=== PATIENT | female | born 1960 | race African-American/Black ===

== ENCOUNTER 2021-11-14 21:59 | Inpatient (IN) | payer BC ==
[~2021-11-14] VITALS: Ht 162.6 cm; Wt 83.9 kg
[2021-11-14 22:19] VITALS: BP_SYST 133
--- NOTE | 2021-11-14 22:25 | NUR ---
61 YR OLD FEMALE BROUGHT IN BY BLS AMBULANCE FOR NAUSEA AND VOMITING. PT HAS NUMEROUS HEALTH CONDITIONS AND IS ON A TRACH COLLAR. MD AT THE BEDSIDE
[2021-11-14] MEDS ORDERED: ONDANSETRON HCL 4 MG/2 ML VIAL IVP ONE (22:30)
--- NOTE | 2021-11-14 22:41 | NUR ---
XTRA BEING CONDUCTED AT BED SIDE
--- NOTE | 2021-11-14 22:42 | NUR ---
VT BROUGHT IN BY [facility], PT NON VERBAL, TRACHED, PT BROUGHT IN BCS OF NAUSEA, PT VS ARE WITHIN NORMAL LIMITS. PT IN BED WITH BED LOWERED AND LOCKED AND RAILS UP WILL CONTINUE TO MONITOR.
[2021-11-14] MEDS ORDERED: cefTRIAXone 1 GM IVPB PREMIX 50 ML IV ONE (22:45)
[2021-11-14 23:23] LABS: ANION GAP 4 (5-15); CALCIUM 8.3 mg/dL (8.4-11.0); CREATININE 1.04 mg/dL (0.55-1.30); GLUCOSE 101 mg/dL (70-99); POTASSIUM 4.7 mmol/L (3.5-5.1); UREA NITROGEN, BLOOD 14 mg/dL (8-21)
[2021-11-14 23:26] LABS: BASOPHILS % (AUTO) 0.5 % (0.0-2.0); EOSINOPHILS # (AUTO) 0.5 K/uL (0.0-0.4); EOSINOPHILS % (AUTO) 6.2 % (0.0-4.0); HEMATOCRIT 23.7 % (36-48); HEMOGLOBIN 8.7 g/dL (12.0-16.0); LYMPHOCYTES # (AUTO) 2.2 K/uL (1.0-5.5); LYMPHOCYTES % (AUTO) 27.1 % (20.5-51.5); MEAN CORPUSCULAR HEMOGLOBIN 32 pg (27-31); MEAN CORPUSCULAR HGB CONC 37 % (32-36); MEAN CORPUSCULAR VOLUME 88 fL (79.0-98.0); MONOCYTES # (AUTO) 0.7 K/uL (0.0-1.0); NEUTROPHILS # (AUTO) 4.7 K/uL (1.8-7.7); NEUTROPHILS % (AUTO) 57.2 % (40.0-70.0); WHITE BLOOD COUNT (AUTO) 8.2 K/uL (4.8-10.8)
[2021-11-14 23:32] LABS: ALANINE AMINOTRANSFERASE 72 U/L (12-78); ALBUMIN 2.9 g/dL (3.4-4.8); ASPARTATE AMINOTRANSFERASE 30 U/L (10-37); LIPASE 30 U/L (73-393); TOTAL BILIRUBIN 0.3 mg/dL (0.0-1.0)
[2021-11-14 23:33] LABS: PLATELET COUNT (AUTO) 40 K/uL (130-430)
[2021-11-14 23:54] LABS: CHLORIDE 76 mmol/L (98-107); GFR AFRICAN AMERICAN 70 mL/min (>90); SODIUM SERUM 108 mmol/L (136-145)
[2021-11-15] MEDS ORDERED: NACL 0.9% 1,000 ML IV ONE (00:15)
[2021-11-15] MEDS ORDERED: ASPIRIN 300 MG/SUPP.RECT SUPP RC ONE ×2 (00:15→00:52)
[2021-11-15] MEDS ORDERED: ONDANSETRON HCL 4 MG/2 ML VIAL IVP PRN (00:30)
[2021-11-15] MEDS ORDERED: IPRATROPIUM/ALBUTEROL SULFATE 3 ML AMPUL.NEB (DUONEB) INH PRN (00:30)
[2021-11-15] MEDS ORDERED: ACETAMINOPHEN 325 MG TABLET GT PRN (00:30)
--- NOTE | 2021-11-15 01:06 | NUR ---
Admit bed requested Patient will be admitted to care of . Admitted to TELE Inpatient (Yes or No) Y Observation (Yes or No) Y Orientation concerns or request close to nursing station (Yes or No) Y Covid Status NEG On vent or bipap N From Home (Yes or if No enter name of facility) [facility] Med Rec Completed (Yes of No) PENDING
[2021-11-15 02:45] VITALS: BP_SYST 148
[2021-11-15] MEDS: IPRATROPIUM/ALBUTEROL SULFATE 3 ML AMPUL.NEB (DUONEB) INH SCH ×4 (03:00→15:29)
--- NOTE | 2021-11-15 05:00 | NUR ---
COVID SWAB AND MRSA SWAB OBTAINED AND SAMPLE SENT TO LAB
[2021-11-15] MEDS ORDERED: PIPERACILLIN/TAZO 3.375 GM in NS 50 ML IV SCH (06:00)
[2021-11-15 07:01] LABS: BASOPHILS % (AUTO) 0.2 % (0.0-2.0); EOSINOPHILS # (AUTO) 0.4 K/uL (0.0-0.4); EOSINOPHILS % (AUTO) 6.2 % (0.0-4.0); HEMATOCRIT 24.3 % (36-48); HEMOGLOBIN 8.8 g/dL (12.0-16.0); LYMPHOCYTES # (AUTO) 1.9 K/uL (1.0-5.5); LYMPHOCYTES % (AUTO) 26.8 % (20.5-51.5); MEAN CORPUSCULAR HEMOGLOBIN 32 pg (27-31); MEAN CORPUSCULAR HGB CONC 36 % (32-36); MEAN CORPUSCULAR VOLUME 89 fL (79.0-98.0); MONOCYTES # (AUTO) 0.6 K/uL (0.0-1.0); MONOCYTES % (AUTO) 7.9 % (1.7-9.3); NEUTROPHILS # (AUTO) 4.1 K/uL (1.8-7.7); NEUTROPHILS % (AUTO) 58.9 % (40.0-70.0); RED BLOOD CELL COUNT(AUTO) 2.74 MIL/uL (4.2-6.2); RED CELL DISTRIBUTION WIDTH 14.4 % (9.0-15.0)
[2021-11-15 07:29] LABS: CALCIUM 8.3 mg/dL (8.4-11.0); CREATININE 1.08 mg/dL (0.55-1.30); POTASSIUM 4.5 mmol/L (3.5-5.1); TOTAL BILIRUBIN 0.3 mg/dL (0.0-1.0)
[2021-11-15] MEDS ORDERED: PIPERACILLIN/TAZOBACTAM 3.375 GM/VIAL (ZOSYN) IV ONE (07:36)
[2021-11-15] MEDS: NACL 0.9% 1,000 ML IV SCH ×2 (07:37→16:30)
--- NOTE | 2021-11-15 08:20 | NUR ---
Upon resumption of shift Pt in beed nonverbal GCS 11. IV access infiltrated. New 20G US guided initiated. Pt tolerated procedure appropriately. Pt cleaned and changed. Will continue to monitor pt.
[2021-11-15] MEDS ORDERED: VITD400 PO (08:36)
[2021-11-15] MEDS ORDERED: NOR10 NG (08:36)
[2021-11-15] MEDS ORDERED: TYLL650 PO (08:36)
[2021-11-15] MEDS ORDERED: LIP40 NG (08:36)
[2021-11-15] MEDS ORDERED: ASA81 NG (08:36)
[2021-11-15] MEDS ORDERED: ALBU2.5V7 INH (08:36)
[2021-11-15] MEDS ORDERED: CLON0.1T GT (08:36)
[2021-11-15] MEDS ORDERED: CYAN100010 NG (08:52)
[2021-11-15] MEDS ORDERED: LEVE1000 NG (08:52)
[2021-11-15] MEDS ORDERED: LISI40TA13 NG (08:52)
[2021-11-15] MEDS ORDERED: QUET200T NG (08:52)
[2021-11-15] MEDS ORDERED: VIS25 NG (08:52)
[2021-11-15] MEDS ORDERED: HYDR25TA4 NG (08:52)
[2021-11-15] MEDS ORDERED: LABE200T6 NG (08:52)
[2021-11-15] MEDS ORDERED: DOXY100T2 NG (08:52)
[2021-11-15] MEDS ORDERED: DEPS125 NG (08:52)
[2021-11-15] MEDS ORDERED: FAMO20TA8 NG (08:52)
[2021-11-15] MEDS ORDERED: LOVI40 SQ (08:52)
[2021-11-15] MEDS ORDERED: LORA-259 NG (08:52)
[2021-11-15] MEDS ORDERED: BISA10SU61 RC (08:52)
[2021-11-15] MEDS ORDERED: ONDA-8 NG (08:52)
[2021-11-15 08:59] LABS: PLATELET COUNT (AUTO) 152 K/uL (130-430)
--- NOTE | 2021-11-15 09:05 | NUR ---
NOTES: pt. brought in from ER via gurney, report given by nurse Rizwan, informed nurse Dana (admitting nurse).
--- NOTE | 2021-11-15 09:18 | NUR ---
Pt transported to floor by ED RN on monitor in no acute distress with 2L of O2 via trach collar. No deviation in pt mentation from previous documentation. [address] IV infusing NS @ 100mls/hr. Pt in no acute distress at time of handoff. Bedside report given to Kandis SHINE.
--- NOTE | 2021-11-15 09:20 | NUR ---
ADMISSION NOTE Received patient from ER via gurney. Patient admitted with diagnosis of vomiting,hyponatremia . Patient is awake, alert, oriented name . Patient oriented to hospital room, call light, toileting, pain management and safety-teach back done. Patient informed that i will be a nurse and that their room number is 130b. Personal belongings checked and Belongings List documented. Call light within reach.
[2021-11-15] MEDS ORDERED: LORazepam 1 MG TABLET NG SCH (10:13)
[2021-11-15] MEDS ORDERED: ONDANSETRON 4 MG ODT TAB NG PRN (10:15)
[2021-11-15] MEDS ORDERED: ALBUTEROL SULFATE 0.083% 2.5 MG/3 ML VIAL.NEB INH PRN (10:15)
[2021-11-15] MEDS ORDERED: cloNIDine HCL 0.1 MG TABLET GT PRN (10:15)
[2021-11-15] MEDS ORDERED: ACETAMINOPHEN 650 MG/20.3 ML UDC PO SCH (10:15)
[2021-11-15] MEDS ORDERED: BISACODYL 10 MG/SUPPOSITORY RC PRN (10:15)
[2021-11-15] MEDS ORDERED: LORazepam 1 MG TABLET GT PRN ×2 (10:45→13:22)
--- NOTE | 2021-11-15 11:00 | NUR ---
RETURN CALL TO PATIENT FATHER ( LONA) UPDATED PATIENT CURRENT CONDITION AND POC. VERBALIZED UNDERSTANDING, STATED WILL BE HERE LATER TODAY.
[2021-11-15] MEDS ORDERED: FAMOTIDINE 20 MG TABLET NG ONE (12:00)
[2021-11-15] MEDS ORDERED: ENOXAPARIN SODIUM 40 MG/0.4 ML SYRINGE SQ ONE (12:00)
[2021-11-15] MEDS ORDERED: lisinopriL 20 MG TABLET NG ONE (12:00)
[2021-11-15] MEDS ORDERED: ASPIRIN 81 MG TAB.CHEW NG ONE (12:00)
[2021-11-15] MEDS ORDERED: HYDROCHLOROTHIAZIDE 25 MG TABLET (HCTZ) NG ONE (12:00)
[2021-11-15] MEDS ORDERED: DOXYCYCLINE HYCLATE 100 MG CAPSULE NG ONE (12:15)
[2021-11-15 12:45] VITALS: BP_SYST 122
[2021-11-15] MEDS ORDERED: levETIRAcetam 500 MG TABLET NG ONE (13:15)
--- NOTE | 2021-11-15 14:23 | NUR ---
CONSULTATION PAGED/CALLED Reason for Consultation: [] elevated troponin Person Who was Notified: [] Christina Consulting Physician: [] Dr. Burrell Associate Professor Of Surgery Specialty: []Cardio Ordering Physician: [] Dr. Quan
[2021-11-15] MEDS: PIPERACILLIN/TAZO 3.375 GM in NS 50 ML IV SCH ×2 (14:40→22:36)
[2021-11-15] MEDS: QUEtiapine FUMARATE 100 MG TABLET GT SCH ×2 (14:46→22:39)
[2021-11-15] MEDS: LABETALOL HCL 100 MG TABLET GT SCH ×2 (14:46→22:43)
[2021-11-15 14:48] VITALS: BP_SYST 109
[2021-11-15 15:46] LABS: BILIRUBIN,URINE NEGATIVE (NEGATIVE); CLARITY/URINE CLEAR (CLEAR); GLUCOSE,URINE NEGATIVE (NEGATIVE); KETONES,URINE NEGATIVE (NEGATIVE); NITRITE, URINE NEGATIVE (NEGATIVE); PH,URINE 7.5 (5.0-8.0); PROTEIN URINE NEGATIVE (NEGATIVE); UROBILINOGEN,URINE 0.2 (0.2-1.0)
[2021-11-15 16:00] LABS: BLOOD, URINE TRACE (NEGATIVE); COLOR,URINE STRAW (YELLOW); LEUKOCYTE ESTERASE ,URINE 1+ (NEGATIVE)
[2021-11-15 16:02] LABS: BACTERIA,URINE FEW /HPF (None Seen); MUCUS,URINE None Seen /LPF (None Seen); RBC,URINE NONE SEEN /HPF (0-3)
--- NOTE | 2021-11-15 16:43 | NUR ---
consult called dr. de anda ( director [employer]) s/w jayla answering service.
--- NOTE | 2021-11-15 16:49 | NUR ---
ID consult: consult called DR. meza for consult. dx pna and hyponatremia. s/w karina answering service.
--- NOTE | 2021-11-15 18:02 | NUR ---
DR. HAAS CALLED BACK AWARE ABOUT THE TROP IS TRENDING DOWN, NEW ORDER RECEIVED START G-TUBE FEEDING TO GLUCERNA 1.2@ 30ML/HR NO WATER FLUSH SODIUM IS 110.
--- NOTE | 2021-11-15 19:31 | NUR ---
endorsed care to jeff SHINE.
[2021-11-15 20:00] VITALS: BP_SYST 95
[2021-11-15] MEDS ORDERED: LevALBUTEROL HCL 1.25 MG/0.5 ML *CONC.* VIAL.NEB (XOPENEX CONC.) INH PRN (20:00)
[2021-11-15] MEDS ORDERED: INSULIN REGULAR, HUMAN 100 UNITS/ML, 10 ML VIAL (humuLIN R) SUBCUT PRN (20:00)
[2021-11-15] MEDS ORDERED: DOXYCYCLINE HYCLATE 100 MG CAPSULE GT SCH (21:00)
[2021-11-15] MEDS ORDERED: DOXYCYCLINE HYCLATE 100 MG CAPSULE NG SCH (21:00)
[2021-11-15] MEDS: LevALBUTEROL HCL 1.25 MG/0.5 ML *CONC.* VIAL.NEB (XOPENEX CONC.) INH SCH (21:10)
[2021-11-15] MEDS ORDERED: KCL 20 mEq in D5NS 1000 mL 1,000 ML IV ONE (22:37)
[2021-11-15] MEDS: levETIRAcetam 500 MG TABLET GT SCH (22:39)
[2021-11-15] MEDS: ATORVASTATIN 20 MG TABLET GT SCH (22:39)
[2021-11-15] MEDS: DIVALPROEX SODIUM 125 MG CAP.(DEPAKOTE SPRINKLE) GT SCH (22:40)
[2021-11-15] MEDS: KCL 20 mEq in D5NS 1000 mL 1,000 ML IV SCH (22:44)
[2021-11-16] MEDS: LevALBUTEROL HCL 1.25 MG/0.5 ML *CONC.* VIAL.NEB (XOPENEX CONC.) INH SCH ×4 (01:39→21:00)
[2021-11-16 01:45] VITALS: BP_SYST 100
[2021-11-16] MEDS: QUEtiapine FUMARATE 100 MG TABLET GT SCH ×3 (06:21→22:00)
[2021-11-16] MEDS: PIPERACILLIN/TAZO 3.375 GM in NS 50 ML IV SCH ×2 (06:22→14:22)
[2021-11-16 06:40] LABS: ALBUMIN 2.5 g/dL (3.4-4.8); CALCIUM 8.1 mg/dL (8.4-11.0); POTASSIUM 4.3 mmol/L (3.5-5.1); TOTAL BILIRUBIN 0.6 mg/dL (0.0-1.0)
--- NOTE | 2021-11-16 07:30 | NUR ---
Opening Notes Patient is awake, alert and oriented x0. Withdrawn. Arousable to touch and light stimuli. Pt remains nonverbal at this time. Mild SOB at rest, JEREZ. Pt remains on trach to TBAR @ 2 liters, FiO2 28%, tolerating well. Scheduled breathing treatments. IV site on left AC 22 gauge intact, KCl 20 mEq +D5NS @ 100 ml/, infusing well. FC draining by gravity, yellow and clear urine. PEGTUBE in place, C/D/I, TF: Glucerna 1.2 @ 30 ml/hr, infusing well. No residual noted. NO FWF at this time. 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 Pending CXRAY. All needs met. Safety and fall precautions in place. Bed in lowest position, alarm on, locked. Will continue to monitor.
--- NOTE | 2021-11-16 07:30 | NUR ---
Closing Patient resting in bed, no sign of distress noted. Fall catheter draining yellow urine. IV fluids infusing as ordered. Tube feeding running to GT, no residual. Per joni Bruce to change cefepime to q12hr. Care endorsed to oncoming RN.
--- NOTE | 2021-11-16 07:40 | NUR ---
CRITICAL LAB: Laboratory called with critical lab value NA 117. Medical record number and patient name verified. Read back of values done. DR LR notified of value. NO NEW orders given at this time.
[2021-11-16 08:00] VITALS: BP_SYST 144
[2021-11-16] MEDS: FAMOTIDINE 20 MG TABLET GT SCH (08:14)
[2021-11-16] MEDS: KCL 20 mEq in D5NS 1000 mL 1,000 ML IV SCH ×2 (08:14→16:53)
[2021-11-16] MEDS: levETIRAcetam 500 MG TABLET GT SCH (08:14)
[2021-11-16] MEDS: ASPIRIN 81 MG TAB.CHEW GT SCH (08:14)
[2021-11-16] MEDS: DIVALPROEX SODIUM 125 MG CAP.(DEPAKOTE SPRINKLE) GT SCH ×2 (08:14→21:00)
[2021-11-16] MEDS: lisinopriL 20 MG TABLET GT SCH (08:15)
[2021-11-16] MEDS: CHOLECALCIFEROL (VITAMIN D-3) 400 UNIT TABLET GT SCH (08:15)
[2021-11-16] MEDS: CYANOCOBALAMIN 1000 mCg TABLET GT SCH (08:16)
[2021-11-16] MEDS: LABETALOL HCL 100 MG TABLET GT SCH ×3 (08:16→21:00)
[2021-11-16] MEDS: ENOXAPARIN SODIUM 40 MG/0.4 ML SYRINGE SQ SCH (08:17)
[2021-11-16 08:39] LABS: BASOPHILS % (AUTO) 0.6 % (0.0-2.0); EOSINOPHILS # (AUTO) 0.4 K/uL (0.0-0.4); EOSINOPHILS % (AUTO) 7.1 % (0.0-4.0); HEMATOCRIT 22.3 % (36-48); HEMOGLOBIN 7.9 g/dL (12.0-16.0); LYMPHOCYTES # (AUTO) 1.3 K/uL (1.0-5.5); LYMPHOCYTES % (AUTO) 24.8 % (20.5-51.5); MEAN CORPUSCULAR HEMOGLOBIN 32 pg (27-31); MEAN CORPUSCULAR HGB CONC 36 % (32-36); MEAN CORPUSCULAR VOLUME 90 fL (79.0-98.0); MONOCYTES # (AUTO) 0.5 K/uL (0.0-1.0); MONOCYTES % (AUTO) 8.9 % (1.7-9.3); NEUTROPHILS # (AUTO) 3.2 K/uL (1.8-7.7); NEUTROPHILS % (AUTO) 58.6 % (40.0-70.0); RED BLOOD CELL COUNT(AUTO) 2.49 MIL/uL (4.2-6.2); RED CELL DISTRIBUTION WIDTH 13.7 % (9.0-15.0); WHITE BLOOD COUNT (AUTO) 5.4 K/uL (4.8-10.8)
[2021-11-16] MEDS ORDERED: HYDROCHLOROTHIAZIDE 25 MG TABLET (HCTZ) GT SCH (09:00)
[2021-11-16 09:31] LABS: PLATELET COUNT (AUTO) 142 K/uL (130-430)
--- NOTE | 2021-11-16 12:00 | NUR ---
Notes Patient is laying in bed. Family by bedside. Patient is verbal, clear speech. Per family, "She can be stubborn sometimes and not speak. She is selective of who she speaks to. Mild SOB at rest. Trach to vent, no suction needed. No signs of pain, Will continue to monitor.
[2021-11-16 12:54] VITALS: BP_SYST 135
[2021-11-16] MEDS ORDERED: CEFEPIME 1 GM in D5W 50 ML IV SCH (13:45)
--- NOTE | 2021-11-16 16:00 | NUR ---
Notes Patient is sleeping at this time. NO acute distress. Pt remains on trach to TBAR, 2 liters, FiO2 285. ABG normal. No signs of pain. Will continue to monitor.
[2021-11-16 16:53] VITALS: BP_SYST 138
--- NOTE | 2021-11-16 18:55 | NUR ---
Closing Notes/Increased TF rate: 40 ml/hr Patient is laying in bed. Alert and oriented x0, withdrawn. Mild SOB at rest. Pt remains on trach to TBAR, 2 liters FiO2 285, tolerating well. Noted with thick secretions, suctioned as needed. IV site on left AC 22 gauge intact, KCl 20 mEq + D5NS @ 100 ml/hr, infusing well. FC draining by gravity, good output, 2000 ml on shift. PEGTUBE in place. TF: Glucerna 1.2 @ 40 ml/hr, infusing well. Changed rate per Dr. Morales request. Seizure precautions in place. All needs met at [facility]. Safety and fall precautions in place. Bed in lowest position, alarm on, locked. Will continue to monitor.
--- NOTE | 2021-11-16 20:00 | NUR ---
OPEN NOTE Patient is laying in bed with eyes closed. Not responding to any commands. Pt is at this time AOX0. Pt remains on trach to TBAR, 3 liters FiO2 28, tolerating well. Noted with thick secretions, suctioned as needed. Tube feedings is at a rate: 40 ml/hr IV site on left AC 22 gauge intact, KCl 20 mEq + D5NS @ 100 ml/hr, infusing well. FC draining by gravity wit jennifer color urine. PEG TUBE in place. Seizure precautions in place. All safety and fall precautions in place. Bed in lowest position, alarm on, locked. Will continue to monitor.
[2021-11-16] MEDS: CEFEPIME 1 GM in D5W 50 ML IV SCH (21:00)
[2021-11-16] MEDS: ATORVASTATIN 20 MG TABLET GT SCH (21:00)
--- NOTE | 2021-11-17 | NUR ---
Pt remains in bed with eyes closed and non verbal. Pt is awake and shaking her leg, appears comfortable and all safety precautions remain in place.
[2021-11-17] MEDS: levETIRAcetam 500 MG TABLET GT SCH ×3 (00:39→22:02)
[2021-11-17 00:44] VITALS: BP_SYST 140
[2021-11-17] MEDS: LevALBUTEROL HCL 1.25 MG/0.5 ML *CONC.* VIAL.NEB (XOPENEX CONC.) INH SCH ×3 (03:10→13:34)
[2021-11-17] MEDS: KCL 20 mEq in D5NS 1000 mL 1,000 ML IV SCH ×3 (03:15→22:06)
--- NOTE | 2021-11-17 04:00 | NUR ---
TUBE FEEDING Pt's TF was changed pt reamins awake but with eyes closed and remains n9n verbal to any commands and will pull hand away with any touching. Safety precautions remain in place
[2021-11-17] MEDS: QUEtiapine FUMARATE 100 MG TABLET GT SCH ×3 (05:35→22:02)
[2021-11-17 07:04] LABS: BASOPHILS % (AUTO) 0.4 % (0.0-2.0); EOSINOPHILS # (AUTO) 0.4 K/uL (0.0-0.4); LYMPHOCYTES # (AUTO) 1.8 K/uL (1.0-5.5); LYMPHOCYTES % (AUTO) 27.6 % (20.5-51.5); MEAN CORPUSCULAR HEMOGLOBIN 32 pg (27-31); MEAN CORPUSCULAR HGB CONC 35 % (32-36); MEAN CORPUSCULAR VOLUME 90 fL (79.0-98.0); MONOCYTES # (AUTO) 0.6 K/uL (0.0-1.0); MONOCYTES % (AUTO) 9.6 % (1.7-9.3); NEUTROPHILS # (AUTO) 3.7 K/uL (1.8-7.7); NEUTROPHILS % (AUTO) 56.4 % (40.0-70.0); RED CELL DISTRIBUTION WIDTH 14.3 % (9.0-15.0); WHITE BLOOD COUNT (AUTO) 6.6 K/uL (4.8-10.8)
--- NOTE | 2021-11-17 07:15 | NUR ---
opening note received sbar from night rn, patient in bed, respirations evens, non labored, bed in low and locked position call light within reach, bed alarm on. iv and feeding tube running as directed.
[2021-11-17 08:00] VITALS: BP_SYST 140
[2021-11-17 08:55] LABS: PLATELET COUNT (AUTO) 183 K/uL (130-430)
[2021-11-17 08:57] LABS: HEMATOCRIT 21.6 % (36-48); HEMOGLOBIN 7.7 g/dL (12.0-16.0)
--- NOTE | 2021-11-17 08:57 | NUR ---
critical lab received critical lab paged dr Del Valle
[2021-11-17] MEDS: FAMOTIDINE 20 MG TABLET GT SCH (09:54)
[2021-11-17] MEDS: CHOLECALCIFEROL (VITAMIN D-3) 400 UNIT TABLET GT SCH (09:54)
[2021-11-17] MEDS: CYANOCOBALAMIN 1000 mCg TABLET GT SCH (09:55)
[2021-11-17] MEDS: DIVALPROEX SODIUM 125 MG CAP.(DEPAKOTE SPRINKLE) GT SCH ×2 (09:56→22:02)
[2021-11-17] MEDS: ASPIRIN 81 MG TAB.CHEW GT SCH (09:56)
[2021-11-17] MEDS: lisinopriL 20 MG TABLET GT SCH (09:57)
[2021-11-17] MEDS: LABETALOL HCL 100 MG TABLET GT SCH ×3 (09:57→22:05)
[2021-11-17] MEDS: ENOXAPARIN SODIUM 40 MG/0.4 ML SYRINGE SQ SCH (09:58)
--- NOTE | 2021-11-17 10:00 | NUR ---
critical Dr steinberg on the floor informed dr of Critical H/H and increased tropinon. no new orders
[2021-11-17] MEDS: CEFEPIME 1 GM in D5W 50 ML IV SCH ×2 (10:07→22:06)
[2021-11-17 10:12] LABS: POTASSIUM 4.2 mmol/L (3.5-5.1)
[2021-11-17 10:13] LABS: CALCIUM 8.2 mg/dL (8.4-11.0); CREATININE 1.06 mg/dL (0.55-1.30); TOTAL BILIRUBIN 0.2 mg/dL (0.0-1.0)
[2021-11-17 10:14] LABS: ALBUMIN 2.5 g/dL (3.4-4.8)
[2021-11-17 10:18] LABS: THYROID STIMULATING HORMONE 0.92 uIu/mL (0.34-4.82)
[2021-11-17 11:59] VITALS: BP_SYST 149
[2021-11-17 16:54] VITALS: BP_SYST 132
--- NOTE | 2021-11-17 17:43 | NUR ---
feeding tube stopped feeding, 0 residual, flushed freely with 100ml of water. changed feeding bottle and tubing. patient tolerated well, no signs of distress noted
--- NOTE | 2021-11-17 19:20 | NUR ---
Closing note provided SBAR to night RN. Patient in bed, respirations even, non labored, 3L to T bar, IVF and feedings running as directed. Bed in low and locked position, call light within reach, bed alarm on. Endorsed care to night RN
--- NOTE | 2021-11-17 19:45 | NUR ---
Initial note At initial assessment, patient is resting in bed, stable, no signs of respiratory distress. Patient shows no pain per flacc scale used. Plan of care for the evening is communicated with the patient. Patient is unable to demonstrate correct usage of call light at this time due to cognitive impairment; frequent rounding will be completed throughout the night to meet all patient needs. Bed is locked, alarmed, and at the lowest level. Fall safety education provided. Fall, safety, aspiration, seizure, and respiratory precautions will be taken throughout the shift.
[2021-11-17 20:00] VITALS: BP_SYST 133
[2021-11-17] MEDS: ATORVASTATIN 20 MG TABLET GT SCH (22:02)
--- NOTE | 2021-11-17 22:15 | NUR ---
Hygiene care note Hygiene care is provided at this time, fresh linens provided, and patient is repositioned for comfort and turned to other side for pressure distribution. Patient tolerated well. Bed is locked, alarmed, and at the lowest level.
[2021-11-18] MEDS: LevALBUTEROL HCL 1.25 MG/0.5 ML *CONC.* VIAL.NEB (XOPENEX CONC.) INH SCH ×4 (01:30→20:22)
[2021-11-18 02:07] VITALS: BP_SYST 140
[2021-11-18] MEDS: QUEtiapine FUMARATE 100 MG TABLET GT SCH ×3 (05:24→22:45)
--- NOTE | 2021-11-18 06:30 | NUR ---
Closing note No changes during the night. At this time, patient is resting in bed, stale, no signs of respiratory distress. HOB at 30 degrees. Bed is locked, alarmed, and at the lowest level. Fall, safety, respiratory, aspiration, and seizure precautions have been taken throughout the night. Patient turned from side to side [id number]. Will continue to monitor until shift report is given at bedside to am nurse.
[2021-11-18 07:30] LABS: CALCIUM 8.1 mg/dL (8.4-11.0); CREATININE 0.9 mg/dL (0.55-1.30); POTASSIUM 4.1 mmol/L (3.5-5.1)
--- NOTE | 2021-11-18 07:30 | NUR ---
Opening Notes: Received patient in bed, awake, breathing unlabored, T-bar 3L. G-tube and IV patent and infusing well. Fall cath in-place and draining by gravity. Fall, safety and aspiration precaution observed, bed alarm on, padded side rails provided for seizure precaution,
[2021-11-18 08:00] VITALS: BP_SYST 132
[2021-11-18 08:15] LABS: TOTAL IRON BIND. CAPACITY 177 ug/dL (250-450)
--- NOTE | 2021-11-18 09:00 | NUR ---
RN NOTES/ INCONTINENT CARE DONE: INCONTINENT CARE DONE. SKIN INTACT. NO S/S OF ACUTE DISTRESS NOTED. FALL, SAFETY AND ASPIRATION MEASURES PROVIDED. BED LOCKED, ALARM ON AND IN LOWEST POSITION.
[2021-11-18] MEDS: CHOLECALCIFEROL (VITAMIN D-3) 400 UNIT TABLET GT SCH (09:43)
[2021-11-18] MEDS: DIVALPROEX SODIUM 125 MG CAP.(DEPAKOTE SPRINKLE) GT SCH ×2 (09:45→22:44)
[2021-11-18] MEDS: LABETALOL HCL 100 MG TABLET GT SCH ×3 (09:45→22:49)
[2021-11-18] MEDS: levETIRAcetam 500 MG TABLET GT SCH ×2 (09:46→22:45)
[2021-11-18] MEDS: ASPIRIN 81 MG TAB.CHEW GT SCH (09:46)
[2021-11-18] MEDS: CYANOCOBALAMIN 1000 mCg TABLET GT SCH (09:47)
[2021-11-18] MEDS: lisinopriL 20 MG TABLET GT SCH (09:47)
[2021-11-18] MEDS: FAMOTIDINE 20 MG TABLET GT SCH (09:47)
[2021-11-18] MEDS: ENOXAPARIN SODIUM 40 MG/0.4 ML SYRINGE SQ SCH (09:51)
[2021-11-18] MEDS: KCL 20 mEq in D5NS 1000 mL 1,000 ML IV SCH ×2 (09:53→18:16)
[2021-11-18] MEDS: CEFEPIME 1 GM in D5W 50 ML IV SCH ×2 (10:03→22:45)
[2021-11-18 10:45] LABS: BASOPHILS % (AUTO) 0.3 % (0.0-2.0); EOSINOPHILS # (AUTO) 0.4 K/uL (0.0-0.4); HEMATOCRIT 23.3 % (36-48); HEMOGLOBIN 8.1 g/dL (12.0-16.0); LYMPHOCYTES # (AUTO) 1.9 K/uL (1.0-5.5); LYMPHOCYTES % (AUTO) 31.8 % (20.5-51.5); MEAN CORPUSCULAR HEMOGLOBIN 32 pg (27-31); MEAN CORPUSCULAR HGB CONC 35 % (32-36); MEAN CORPUSCULAR VOLUME 92 fL (79.0-98.0); MONOCYTES # (AUTO) 0.4 K/uL (0.0-1.0); MONOCYTES % (AUTO) 6.7 % (1.7-9.3); NEUTROPHILS # (AUTO) 3.3 K/uL (1.8-7.7); NEUTROPHILS % (AUTO) 54.2 % (40.0-70.0); RED BLOOD CELL COUNT(AUTO) 2.55 MIL/uL (4.2-6.2); RED CELL DISTRIBUTION WIDTH 14.3 % (9.0-15.0); WHITE BLOOD COUNT (AUTO) 6.1 K/uL (4.8-10.8)
[2021-11-18 11:07] LABS: PLATELET COUNT (AUTO) 194 K/uL (130-430)
[2021-11-18 11:42] VITALS: BP_SYST 124
--- NOTE | 2021-11-18 14:22 | NUR ---
Discharge Planning: DCP faxed pt referral to [facility] P#[phone] DCP to follow up. Addendum: 11/18/21 at 1544 by Leena CHENEY [facility]#[phone] requesting auth DCP to follow up
--- NOTE | 2021-11-18 14:30 | NUR ---
Incontinent care given. Patient with moderate amount of bowel movement. Incontinent care given. Patient safety precaution observed, patient repositioned, bed alarm on, call light within reach, side rails up for safety, aspiration precaution observed, HOB elevated. Will continue to monitor.
[2021-11-18 15:37] VITALS: BP_SYST 119
--- NOTE | 2021-11-18 18:39 | NUR ---
CLOSING NOTE: Pt. in bed, no signs of acute distress, T-bar in place, IV and G-Tube infusing well. Fall cath draining by gravity. Safety and seizure precautions observed. Bed alarm on and on lowest position. Needs met throughout shift. Will continue to monitor until night RN endorsed.
[2021-11-18 20:00] VITALS: BP_SYST 148
[2021-11-18] MEDS: ATORVASTATIN 20 MG TABLET GT SCH (22:44)
[2021-11-19 01:02] VITALS: BP_SYST 148
[2021-11-19] MEDS: LevALBUTEROL HCL 1.25 MG/0.5 ML *CONC.* VIAL.NEB (XOPENEX CONC.) INH SCH ×3 (01:22→12:04)
[2021-11-19] MEDS: QUEtiapine FUMARATE 100 MG TABLET GT SCH ×2 (05:17→14:39)
[2021-11-19] MEDS: KCL 20 mEq in D5NS 1000 mL 1,000 ML IV SCH (05:17)
--- NOTE | 2021-11-19 06:45 | NUR ---
Closing note No changes during the night. At this time, patient is resting in bed, stale, no signs of respiratory distress. HOB at 30 degrees. Bed is locked, alarmed, and at the lowest level. Fall, safety, respiratory, aspiration, and seizure precautions have been taken throughout the night. Patient turned from side to side [id number]. Will continue to monitor until shift report is given at bedside to am nurse.
[2021-11-19 06:54] LABS: CALCIUM 8.2 mg/dL (8.4-11.0); CREATININE 0.94 mg/dL (0.55-1.30); POTASSIUM 4.7 mmol/L (3.5-5.1)
[2021-11-19 07:06] LABS: FOLATE (FOLIC ACID) 17.1 ng/mL (>3.0)
[2021-11-19 08:00] VITALS: BP_SYST 119
--- NOTE | 2021-11-19 08:00 | NUR ---
OPENING NOTES: Received patient in bed, alert, confused. Fall cath patent draining by gravity, G-Tube and IV patent and infusing well, safety and seizure precaution observed, bed alarm on, side rails up, call light within reach. Will continue to monitor.
--- NOTE | 2021-11-19 09:00 | NUR ---
Discharge Planning: DCP arrange transport with [facility] [phone] BLS 3:00pm to [facility]#[phone] Rm 47, DCP made CM and nurse aware patient packet taken to nurse station.
[2021-11-19] MEDS: DIVALPROEX SODIUM 125 MG CAP.(DEPAKOTE SPRINKLE) GT SCH (09:50)
[2021-11-19] MEDS: levETIRAcetam 500 MG TABLET GT SCH (09:50)
[2021-11-19] MEDS: ASPIRIN 81 MG TAB.CHEW GT SCH (09:50)
[2021-11-19] MEDS: CYANOCOBALAMIN 1000 mCg TABLET GT SCH (09:50)
[2021-11-19] MEDS: FAMOTIDINE 20 MG TABLET GT SCH (09:51)
[2021-11-19] MEDS: lisinopriL 20 MG TABLET GT SCH (09:52)
[2021-11-19] MEDS: LABETALOL HCL 100 MG TABLET GT SCH ×2 (09:52→14:39)
[2021-11-19] MEDS: ENOXAPARIN SODIUM 40 MG/0.4 ML SYRINGE SQ SCH (09:53)
[2021-11-19] MEDS: CHOLECALCIFEROL (VITAMIN D-3) 400 UNIT TABLET GT SCH (09:55)
[2021-11-19] MEDS: CEFEPIME 1 GM in D5W 50 ML IV SCH (09:56)
--- NOTE | 2021-11-19 11:09 | NUR ---
OPENING NOTES: Received patient in bed, alert, confused. Fall cath patent draining by gravity, G-Tube and IV patent and infusing well, safety and seizure precaution observed, bed alarm on, side rails up, call light within reach. Will continue to monitor. Addendum: 11/19/21 at 1119 by Kalpana Ayala LVN WRONG ENTRY
[2021-11-19 13:26] VITALS: BP_SYST 128
--- NOTE | 2021-11-19 13:50 | NUR ---
SPOKE TO GATITO (FATHER) AND PANKAJ (RN): Spoke to the father, Gatito Hurtado regarding the patient's transfer back to [facility]. Report given to FÁTIMA Vaughan of [facility].
[2021-11-19 14:06] VITALS: BP_SYST 128
--- NOTE | 2021-11-19 14:39 | NUR ---
DC coleman catheter: PER ORDER, CATHETER WAS DISCONTINUED. TIP INTACT. PT TOLERATED. WILL CONTINUE MONITOR FOR URINE OUTPUT. Addendum: 11/19/21 at 1820 by Andrey Persaud RN 1500: patient voided.
--- NOTE | 2021-11-19 16:50 | NUR ---
PT TRANSFERRED Report given to Alexus at [facility]. Transfer packet with Transfer Orders and Medication Reconciliation form given to EMT of [facility] with report. G tube and Trach in placed and secured. Exit care provided. [facility] ID band removed, replaced with ID band with pt's name and . IV catheter removed, intact and dressing applied, no active bleeding. All belongings sent with patient. Patient left floor via gurney escorted by EMT in no distress.
== END 2021-11-19 16:50 | DRG 689 ==
LOC: SED 21:59 → STU 11-15 00:23
PROVIDERS: ADMIT Internal Medicine; ATTEND Family Medicine
DX: N39.0 Urinary tract infection, site not specified (principal); J15.9 Unspecified bacterial pneumonia; E87.1 Hypo-osmolality and hyponatremia; J96.10 Chronic respiratory failure, unspecified whether with hypoxia or hypercapnia; I24.8 Other forms of acute ischemic heart disease; G93.49 Other encephalopathy; E66.9 Obesity, unspecified; D64.9 Anemia, unspecified; D69.6 Thrombocytopenia, unspecified; E11.9 Type 2 diabetes mellitus without complications; E78.5 Hyperlipidemia, unspecified; E86.0 Dehydration; G40.909 Epilepsy, unspecified, not intractable, without status epilepticus; Y95 Nosocomial condition; Z20.822 Contact with and (suspected) exposure to COVID-19; I10 Essential (primary) hypertension; Z93.1 Gastrostomy status; Z93.0 Tracheostomy status; Z86.73 Personal history of transient ischemic attack (TIA), and cerebral infarction without residual deficits; Z74.01 Bed confinement status; Z68.31 Body mass index [BMI] 31.0-31.9, adult; Z79.899 Other long term (current) drug therapy
CPT/HCPCS: 36415; 71045; 80048; 80053; 81000; 82607; 82728; 82746; 82803-TC; 82962; 83540; 83550; 83690; 83735; 83880; 84100; 84443; 84484; 85025; 87070-TC; 87081; 87086; 87205-TC; 93005; 93306; 94640; 94760; 96361; 96365; 96375; 99285; G0378; J0692; J0696; J1650; J1815; J2405; J2543; J7030; J7060; J7612

== ENCOUNTER 2022-01-30 14:43 | Inpatient (IN) | payer BC, MEDICAID ==
[~2022-01-30] VITALS: Ht 162.6 cm; Wt 70.3 kg
[~2022-01-30 14:43] MED LIST: ALBU2.5V7 INH; ASA81 NG; BISA10SU61 RC; CLON0.1T GT; CYAN100010 NG; DEPS125 NG; DOXY100T2 NG; FAMO20TA8 NG; LABE200T9 NG; LEVE1000 NG; LIP40 NG; LISI40TA13 NG; LORA-259 NG; LOVI40 SQ; NOR10 NG; ONDA-8 NG; QUET200T NG; TYLL650 PO; VIS25 NG; VITD400 PO
[2022-01-30 14:45] VITALS: BP_SYST 76
[2022-01-30] MEDS ORDERED: NACL 0.9% 2,000 ML IV ONE (15:00)
[2022-01-30] MEDS ORDERED: VANCOMYCIN HCL 1,000 MG in NS 250 ML IV ONE (15:00)
[2022-01-30] MEDS ORDERED: MEROPENEM 1 GM IVPB PREMIX 50 ML IV ONE (15:00)
[2022-01-30] MEDS ORDERED: NOREPINEPHRINE 4 MG/4 ML VIAL IV ONE ×3 (15:26→22:24)
--- NOTE | 2022-01-30 15:45 | NUR ---
DR. DUKE AT BEDSIDE, CENTRAL LINE 3 LUMENS PLACED TO INJ. ALL PORTS FLUSHED AND PATENT, LEVOPHED INITIATED AT 0.1MCG/KG/MIN. EKG COMPLETED. 2 LITERS IVF BOLUS INITIATED, BLOOD DRAWN.
--- NOTE | 2022-01-30 15:50 | NUR ---
MAP 56, LEVOPHED INCREASED TO 0.13MCG/KG/MIN. WILL CONTINUE TO MONITOR AND TITRATE NEEDED.
--- NOTE | 2022-01-30 16:00 | NUR ---
MAP 58 LEVOPHED INCREASES TO 0.16MCG/KG/MIN. WILL CONTINUE TO MONITOR AND TITRATE NEEDED.
--- NOTE | 2022-01-30 16:09 | NUR ---
covid swab done at bedside, sample sent to lab
[2022-01-30] MEDS ORDERED: VANCOMYCIN HCL 1000 MG/VIAL IV ONE (16:29)
--- NOTE | 2022-01-30 16:30 | NUR ---
MAP 57 LEVOPHED TITRATED TO 0.19MCG/KG/MIN. WILL CONTINUE TO MONITOR AND TITRATE NEEDED.
[2022-01-30] MEDS ORDERED: NOREPINEPHRINE BITARTRATE 4 MG in NS 246 ML IV ONE ×2 (16:45→18:15)
[2022-01-30 16:46] LABS: POTASSIUM 4.6 mmol/L (3.5-5.1)
[2022-01-30 16:47] LABS: BASOPHILS % (AUTO) 0.2 % (0.0-2.0); EOSINOPHILS # (AUTO) 0.6 K/uL (0.0-0.4); EOSINOPHILS % (AUTO) 4.1 % (0.0-4.0); HEMATOCRIT 24.9 % (36-48); HEMOGLOBIN 8.1 g/dL (12.0-16.0); LYMPHOCYTES # (AUTO) 3.8 K/uL (1.0-5.5); LYMPHOCYTES % (AUTO) 26.2 % (20.5-51.5); MEAN CORPUSCULAR HEMOGLOBIN 31 pg (27-31); MEAN CORPUSCULAR HGB CONC 33 % (32-36); MEAN CORPUSCULAR VOLUME 94 fL (79.0-98.0); MONOCYTES % (AUTO) 7.2 % (1.7-9.3); NEUTROPHILS % (AUTO) 62.3 % (40.0-70.0); RED BLOOD CELL COUNT(AUTO) 2.65 MIL/uL (4.2-6.2); RED CELL DISTRIBUTION WIDTH 13.1 % (9.0-15.0); WHITE BLOOD COUNT (AUTO) 14.4 K/uL (4.8-10.8)
[2022-01-30 16:57] LABS: ALBUMIN 2.8 g/dL (3.4-4.8); CREATININE 6.72 mg/dL (0.55-1.30); TOTAL BILIRUBIN 0.3 mg/dL (0.0-1.0)
[2022-01-30 17:01] LABS: CALCIUM 12.8 mg/dL (8.4-11.0)
--- NOTE | 2022-01-30 17:16 | NUR ---
MAP 47 LEVOPHED TITRATED UP TO 0.22MCG/KG/MIN. WILL CONTINUE TO MONITOR AND TITRATE NEEDED.
[2022-01-30 17:28] LABS: BILIRUBIN,URINE NEGATIVE (NEGATIVE); BLOOD, URINE 3+ (NEGATIVE); CLARITY/URINE TURBID (CLEAR); COLOR,URINE YELLOW (YELLOW); GLUCOSE,URINE NEGATIVE (NEGATIVE); KETONES,URINE TRACE (NEGATIVE); LEUKOCYTE ESTERASE ,URINE 3+ (NEGATIVE); NITRITE, URINE NEGATIVE (NEGATIVE); PROTEIN URINE 3+ (NEGATIVE); UROBILINOGEN,URINE 0.2 (0.2-1.0)
[2022-01-30 17:33] LABS: BACTERIA,URINE MANY /HPF (None Seen); CALCIUM OXALATE CRYSTALS,UR 0-10 /HPF (None Seen); RBC,URINE 20-50 /HPF (0-3); WBC,URINE >100 /HPF (0-3)
[2022-01-30 17:33] LABS: PLATELET COUNT (AUTO) 149 K/uL (130-430)
[2022-01-30] MEDS ORDERED: NACL 0.9% 1,000 ML IV ONE (17:45)
--- NOTE | 2022-01-30 17:52 | NUR ---
CALL TO DR. CLARK FOR ADMISSION. SPOKE TO DR DUKE AND GIVING ORDERS TO RN
[2022-01-30] MEDS ORDERED: D5NS 1,000 ML IV ONE (18:15)
--- NOTE | 2022-01-30 18:15 | NUR ---
Admit bed requested Patient will be admitted to care of . Admitted to ICU unit. Diagnosis SEPTIC SHOCK Inpatient (Yes or No) NO Observation (Yes or No) NO Orientation concerns or request close to nursing station (Yes or No) NO Covid Status NEGATIVE On vent or bipap NO Isolation requirements NO Needs a sitter NO From Home (Yes or if No enter name of facility) TYA SYDNEY Requires Dialysis (Yes or No) NO Med Rec Completed (Yes of No) YES
--- NOTE | 2022-01-30 18:42 | NUR ---
SPOKE TO FÁTIMA MONTIERO IN ICU AND MADE HER AWARE OF BED REQUEST FOR THIS PT.
--- NOTE | 2022-01-30 19:22 | NUR ---
ENDORSED ALL CARE TO FÁTIMA PONCE. ALL QUESTIONS AND CONCERNS ADDRESSED.
--- NOTE | 2022-01-30 19:38 | NUR ---
1924 - Bedside report from FÁTIMA Heller. 1937 - U/S of kidney at bedside at this time.
[2022-01-30] MEDS ORDERED: LevALBUTEROL HCL 1.25 MG/0.5 ML *CONC.* VIAL.NEB (XOPENEX CONC.) INH PRN (20:45)
[2022-01-30] MEDS ORDERED: ACETAMINOPHEN 650 MG/20.3 ML UDC PO PRN (20:45)
[2022-01-30] MEDS ORDERED: ONDANSETRON 4 MG ODT TAB NG PRN (20:45)
[2022-01-30] MEDS ORDERED: ENOXAPARIN SODIUM 40 MG/0.4 ML SYRINGE SQ SCH (20:45)
[2022-01-30] MEDS ORDERED: INSULIN REGULAR, HUMAN 100 UNITS/ML, 10 ML VIAL (humuLIN R) SUBCUT PRN (20:45)
[2022-01-30] MEDS: LevALBUTEROL HCL 1.25 MG/0.5 ML *CONC.* VIAL.NEB (XOPENEX CONC.) INH SCH (20:45)
[2022-01-30] MEDS ORDERED: LORazepam 1 MG TABLET NG PRN (21:00)
--- NOTE | 2022-01-30 22:30 | NUR ---
Pt transferred to ICU 3. Pt awake, moving eyes but not tracking when name called. o2 sat bet 97% - 100% with 5L/min trach collar. Cont on Levophed drip at 0.5mcg/kg/min with 108/45 Bp upon transfer. Endorsed to RN Antonia, given a bedside report for cont of care.
[2022-01-30 23:00] VITALS: BP_SYST 110
[2022-01-30 23:43] VITALS: BP_SYST 108
[2022-01-30] MEDS: QUEtiapine FUMARATE 100 MG TABLET NG SCH (23:46)
[2022-01-30] MEDS: ENOXAPARIN SODIUM 30 MG/0.3 ML SYRINGE SUBCUT SCH (23:48)
[2022-01-30] MEDS: DIVALPROEX SODIUM 125 MG CAP.(DEPAKOTE SPRINKLE) NG SCH (23:48)
[2022-01-30] MEDS: NACL 0.9% 1,000 ML IV SCH (23:49)
[2022-01-31] VITALS (24 sets, daily range): BP systolic 90–136
[2022-01-31] MEDS ORDERED: levETIRAcetam 500 MG TABLET ONE (00:36)
[2022-01-31] MEDS: LevETIRAcetam 500 MG/5 ML UDC ORAL LIQUID NG SCH ×3 (00:44→20:57)
[2022-01-31] MEDS ORDERED: NOREPINEPHRINE 4 MG/4 ML VIAL IV ONE ×4 (00:58→10:39)
--- NOTE | 2022-01-31 01:24 | NUR ---
PULMO CONSULT Pulmo consult called for Dr. Costello.
--- NOTE | 2022-01-31 01:24 | NUR ---
RENAL CONSULT Renal consult called for DR. LIVE KENDRICK CONFERENCE MANAGER.
[2022-01-31] MEDS: LevALBUTEROL HCL 1.25 MG/0.5 ML *CONC.* VIAL.NEB (XOPENEX CONC.) INH SCH ×4 (01:29→19:10)
[2022-01-31] MEDS: NOREPINEPHRINE BITARTRATE 8 MG in NS 242 ML IV PRN ×2 (01:53→05:55)
[2022-01-31] MEDS: QUEtiapine FUMARATE 100 MG TABLET NG SCH ×3 (05:47→21:45)
[2022-01-31] MEDS: NACL 0.9% 1,000 ML IV SCH ×4 (06:01→22:36)
[2022-01-31 06:23] LABS: BASOPHILS % (AUTO) 0.1 % (0.0-2.0); EOSINOPHILS # (AUTO) 0.9 K/uL (0.0-0.4); EOSINOPHILS % (AUTO) 5.9 % (0.0-4.0); HEMATOCRIT 22.6 % (36-48); HEMOGLOBIN 7.4 g/dL (12.0-16.0); LYMPHOCYTES # (AUTO) 2.6 K/uL (1.0-5.5); LYMPHOCYTES % (AUTO) 17.4 % (20.5-51.5); MEAN CORPUSCULAR HEMOGLOBIN 31 pg (27-31); MEAN CORPUSCULAR HGB CONC 33 % (32-36); MEAN CORPUSCULAR VOLUME 96 fL (79.0-98.0); MONOCYTES # (AUTO) 1.5 K/uL (0.0-1.0); MONOCYTES % (AUTO) 9.8 % (1.7-9.3); NEUTROPHILS # (AUTO) 10.1 K/uL (1.8-7.7); NEUTROPHILS % (AUTO) 66.8 % (40.0-70.0); RED BLOOD CELL COUNT(AUTO) 2.37 MIL/uL (4.2-6.2); RED CELL DISTRIBUTION WIDTH 13.1 % (9.0-15.0); WHITE BLOOD COUNT (AUTO) 15.1 K/uL (4.8-10.8)
[2022-01-31 07:20] LABS: PLATELET COUNT (AUTO) 14 K/uL (130-430)
[2022-01-31 07:30] LABS: CALCIUM 10.8 mg/dL (8.4-11.0); CREATININE 5.34 mg/dL (0.55-1.30); POTASSIUM 4.4 mmol/L (3.5-5.1)
--- NOTE | 2022-01-31 08:00 | NUR ---
RODNEY CALDERON MAIL CARRIERS SUPERVISOR IS IN CHARGE OF THIS PT/SHE IS NOT RESPONSIVE TO CO MMANDS ON 5L NASAL CANNULA/RT AND I HAVE DISCUSSED COOL AEROSOL TOP LOOOSEN HER THICK TENACIOUS SECRETIONS AND RT WILL CHANGE/PT TF STARTED AND EASILY TITRATABLE/TITRATING LEVOPHED TO OFF HOPEFULLY TODAY/REPOSITONED PT IN BED//VS STABLE
--- NOTE | 2022-01-31 08:10 | NUR ---
rt notes 0810 Placed pt on CA 5L/28% FIO2. Pt suctioned (texture seemed to be mucoidy, tried lavaging with saline.) FÁTIMA wright.
[2022-01-31 08:45] LABS: BASOPHILS % (AUTO) 0.2 % (0.0-2.0); EOSINOPHILS # (AUTO) 0.8 K/uL (0.0-0.4); EOSINOPHILS % (AUTO) 6.6 % (0.0-4.0); HEMOGLOBIN 7.2 g/dL (12.0-16.0); LYMPHOCYTES # (AUTO) 2.5 K/uL (1.0-5.5); LYMPHOCYTES % (AUTO) 20.4 % (20.5-51.5); MEAN CORPUSCULAR HEMOGLOBIN 31 pg (27-31); MEAN CORPUSCULAR HGB CONC 33 % (32-36); MEAN CORPUSCULAR VOLUME 95 fL (79.0-98.0); MONOCYTES % (AUTO) 8.6 % (1.7-9.3); NEUTROPHILS # (AUTO) 7.8 K/uL (1.8-7.7); NEUTROPHILS % (AUTO) 64.2 % (40.0-70.0); PLATELET COUNT (AUTO) 110 K/uL (130-430); RED CELL DISTRIBUTION WIDTH 13.5 % (9.0-15.0); WHITE BLOOD COUNT (AUTO) 12.1 K/uL (4.8-10.8)
[2022-01-31] MEDS ORDERED: traMADol HCL HCL 50 MG TABLET (ULTRAM) PO PRN (09:15)
[2022-01-31] MEDS ORDERED: ACETAMINOPHEN 650 MG/20.3 ML UDC GT PRN (09:15)
[2022-01-31 09:22] LABS: TOTAL IRON BIND. CAPACITY 131 ug/dL (250-450)
[2022-01-31] MEDS: BISACODYL 10 MG/SUPPOSITORY RC SCH (09:56)
[2022-01-31] MEDS: CHOLECALCIFEROL (VITAMIN D-3) 400 UNIT TABLET PO SCH (09:56)
[2022-01-31] MEDS: ASPIRIN 81 MG TAB.CHEW NG SCH (09:56)
[2022-01-31] MEDS: FAMOTIDINE 20 MG TABLET NG SCH (09:56)
[2022-01-31] MEDS: ATORVASTATIN 20 MG TABLET NG SCH (09:56)
[2022-01-31] MEDS: CYANOCOBALAMIN 1000 mCg TABLET NG SCH (09:57)
[2022-01-31] MEDS: DIVALPROEX SODIUM 125 MG CAP.(DEPAKOTE SPRINKLE) NG SCH ×2 (09:57→20:57)
[2022-01-31] MEDS: ACETYLCYSTEINE 20% 4 ML VIAL (RT) INH SCH ×2 (13:27→19:09)
[2022-01-31] MEDS: SOD FERRIC GLUC COMPLEX/SUC 125 MG in NS 100 ML IV SCH (14:19)
--- NOTE | 2022-01-31 18:09 | NUR ---
PT LEVOPHED NOW OFF/PT TOLERATING COOL AEROSOL WELL, AND IN ZERO DISTRESS/URINOMETER PLACED AND PT TOLERATING GOAL RATE OF TF//VS STABLE EXCEPT FOR SLIGHT TACHYCARDIA//MW
--- NOTE | 2022-01-31 19:00 | NUR ---
Received pt from outgoing nurse.Asleep.Has a trach oxygen delivered via a cool Aero @5L/28% left AJ triple lumen with NS@150cc in progress. Glucerna 1.2@ 40cc running via a PEG tube.Fall catheter draining yellow urine .vitas done BPs 104/49 .RR -20 SPO2-98%.TEMP 100.2 Cool clothing applied
[2022-01-31] MEDS: ENOXAPARIN SODIUM 30 MG/0.3 ML SYRINGE SUBCUT SCH (20:57)
[2022-02-01] VITALS (24 sets, daily range): BP systolic 99–131
--- NOTE | 2022-02-01 | NUR ---
Accucheck 100. rest vitals done see flow sheet
--- NOTE | 2022-02-01 | NUR ---
Levo @0.1mcg/kg/min restarted for low BPs .suction from the Trach
[2022-02-01] MEDS: ACETYLCYSTEINE 20% 4 ML VIAL (RT) INH SCH ×4 (00:02→19:20)
[2022-02-01] MEDS: LevALBUTEROL HCL 1.25 MG/0.5 ML *CONC.* VIAL.NEB (XOPENEX CONC.) INH SCH ×4 (00:02→19:20)
[2022-02-01] MEDS: NOREPINEPHRINE BITARTRATE 8 MG in NS 242 ML IV PRN (02:11)
[2022-02-01] MEDS: QUEtiapine FUMARATE 100 MG TABLET NG SCH ×3 (05:31→20:34)
[2022-02-01] MEDS: NACL 0.9% 1,000 ML IV SCH ×2 (05:32→12:26)
[2022-02-01 06:27] LABS: BASOPHILS % (AUTO) 0.2 % (0.0-2.0); EOSINOPHILS # (AUTO) 0.8 K/uL (0.0-0.4); EOSINOPHILS % (AUTO) 8.1 % (0.0-4.0); LYMPHOCYTES # (AUTO) 2.7 K/uL (1.0-5.5); MEAN CORPUSCULAR HEMOGLOBIN 32 pg (27-31); MEAN CORPUSCULAR HGB CONC 34 % (32-36); MEAN CORPUSCULAR VOLUME 95 fL (79.0-98.0); MONOCYTES # (AUTO) 0.7 K/uL (0.0-1.0); MONOCYTES % (AUTO) 6.9 % (1.7-9.3); NEUTROPHILS # (AUTO) 6.1 K/uL (1.8-7.7); NEUTROPHILS % (AUTO) 58.8 % (40.0-70.0); RED BLOOD CELL COUNT(AUTO) 2.09 MIL/uL (4.2-6.2); RED CELL DISTRIBUTION WIDTH 13.4 % (9.0-15.0); WHITE BLOOD COUNT (AUTO) 10.3 K/uL (4.8-10.8)
[2022-02-01 06:30] LABS: CALCIUM 10.8 mg/dL (8.4-11.0); CREATININE 3.46 mg/dL (0.55-1.30); POTASSIUM 3.6 mmol/L (3.5-5.1)
[2022-02-01 07:36] LABS: PLATELET COUNT (AUTO) 111 K/uL (130-430)
[2022-02-01 07:38] LABS: HEMATOCRIT 19.8 % (36-48); HEMOGLOBIN 6.7 g/dL (12.0-16.0)
[2022-02-01] MEDS: LevETIRAcetam 500 MG/5 ML UDC ORAL LIQUID NG SCH ×2 (09:17→20:35)
[2022-02-01] MEDS: ASPIRIN 81 MG TAB.CHEW NG SCH (09:17)
[2022-02-01] MEDS: DIVALPROEX SODIUM 125 MG CAP.(DEPAKOTE SPRINKLE) NG SCH ×2 (09:17→20:34)
[2022-02-01] MEDS: ATORVASTATIN 20 MG TABLET NG SCH (09:18)
[2022-02-01] MEDS: CYANOCOBALAMIN 1000 mCg TABLET NG SCH (09:18)
[2022-02-01] MEDS: BISACODYL 10 MG/SUPPOSITORY RC SCH (09:18)
[2022-02-01] MEDS: CHOLECALCIFEROL (VITAMIN D-3) 400 UNIT TABLET PO SCH (09:18)
[2022-02-01] MEDS: FAMOTIDINE 20 MG TABLET NG SCH (09:18)
[2022-02-01] MEDS: SOD FERRIC GLUC COMPLEX/SUC 125 MG in NS 100 ML IV SCH (13:59)
[2022-02-01] MEDS: D5W 1,000 ML IV SCH (15:25)
[2022-02-01] MEDS: MEROPENEM 500 MG in NS 50 ML IV SCH (15:53)
[2022-02-01] MEDS ORDERED: levETIRAcetam 500 MG TABLET ONE (20:13)
[2022-02-01] MEDS: ENOXAPARIN SODIUM 30 MG/0.3 ML SYRINGE SUBCUT SCH (20:34)
--- NOTE | 2022-02-01 21:31 | NUR ---
Nutritional Screening High Risk Screening Admitting Diagnosis Septic shock Reviewed Pertinent Medical/Surgical Hx Medical Record Medical History Comment: Per EMR: 61y non-verbal female from [facility] who presented with 24h worsening SOB and hypotension. Patient with extensive pmh: chronic respiratory failure, encephalopathy, HTN, seizure disorder with hx intracranial hemorrhage, dysphagia, g-tube dependent, and trach dependent. Patient found to have sepsis, UTI, dehydration, severe anemia, moderate PEM, and acute renal failure. Subjective Information Patient seen during ICU rounds. Patient is nonverbal at baseline, with trach, and g-tube. Glucerna 1.2 seen running at goal. Per ICU rounds, kidney fxn improving. Patient with multiple wounds and severe anemia, plans for blood transfusion 02/01. No BM documented since admit. Per EMR, pt tolerating TF. Current Diet Order/Nutrition Support TF x 2 days: Glucerna 1.2 @ 40mL x 24h + FWF 150mL q6H Patient/Significant Other Unable To Verbalize Education Provided Not Indicated Dietitian Recommendations * Rec adjust EN regimen to Jevity 1.2 @ 50mL x 24h + Prostat BID -- This provides 2048 kcal (1848 w/o PS), 97g protein (67 g w/o PS), and 968 mL FW * Rc daily MVI (yossi-dillan), 250mg VIT C, 220mg zincate BID x 14 days for wound care * Rec Ruy BID when sepsis resolves Please refer to nutritional assessment for details, thanks! CC, MPH, RDN
[2022-02-02] VITALS (24 sets, daily range): BP systolic 95–140
[2022-02-02] MEDS: D5W 1,000 ML IV SCH ×3 (00:08→20:21)
[2022-02-02] MEDS: ACETYLCYSTEINE 20% 4 ML VIAL (RT) INH SCH ×4 (01:54→19:55)
[2022-02-02] MEDS: LevALBUTEROL HCL 1.25 MG/0.5 ML *CONC.* VIAL.NEB (XOPENEX CONC.) INH SCH ×4 (01:54→19:55)
[2022-02-02] MEDS: QUEtiapine FUMARATE 100 MG TABLET NG SCH ×3 (05:09→21:45)
--- NOTE | 2022-02-02 06:21 | NUR ---
Called Dr. steinberg regarding patient allergies, patient has no known allergies in the system but in her Facility record pt is allergic to depakote. Informed the doctor that patient has allergies to depakote which is one of the scheduled medication for her. MD aware and no new orders given. Medication were given and no signs of allergies noted.
[2022-02-02 06:56] LABS: BASOPHILS % (AUTO) 0.3 % (0.0-2.0); EOSINOPHILS # (AUTO) 0.9 K/uL (0.0-0.4); EOSINOPHILS % (AUTO) 9.7 % (0.0-4.0); HEMATOCRIT 26.7 % (36-48); HEMOGLOBIN 8.8 g/dL (12.0-16.0); LYMPHOCYTES # (AUTO) 2.9 K/uL (1.0-5.5); LYMPHOCYTES % (AUTO) 30.1 % (20.5-51.5); MEAN CORPUSCULAR HEMOGLOBIN 29 pg (27-31); MEAN CORPUSCULAR HGB CONC 33 % (32-36); MEAN CORPUSCULAR VOLUME 87 fL (79.0-98.0); MONOCYTES # (AUTO) 0.7 K/uL (0.0-1.0); MONOCYTES % (AUTO) 7.1 % (1.7-9.3); NEUTROPHILS # (AUTO) 5.1 K/uL (1.8-7.7); NEUTROPHILS % (AUTO) 52.8 % (40.0-70.0); RED BLOOD CELL COUNT(AUTO) 3.07 MIL/uL (4.2-6.2); RED CELL DISTRIBUTION WIDTH 20.3 % (9.0-15.0); WHITE BLOOD COUNT (AUTO) 9.6 K/uL (4.8-10.8)
[2022-02-02 07:07] LABS: PLATELET COUNT (AUTO) 79 K/uL (130-430)
[2022-02-02 07:45] LABS: ALBUMIN 1.8 g/dL (3.4-4.8); CALCIUM 10.8 mg/dL (8.4-11.0); CREATININE 2.58 mg/dL (0.55-1.30); POTASSIUM 3.5 mmol/L (3.5-5.1); TOTAL BILIRUBIN 0.2 mg/dL (0.0-1.0)
[2022-02-02] MEDS: FAMOTIDINE 20 MG TABLET NG SCH (09:02)
[2022-02-02] MEDS: DIVALPROEX SODIUM 125 MG CAP.(DEPAKOTE SPRINKLE) NG SCH ×2 (09:02→20:20)
[2022-02-02] MEDS: ATORVASTATIN 20 MG TABLET NG SCH (09:02)
[2022-02-02] MEDS: LevETIRAcetam 500 MG/5 ML UDC ORAL LIQUID NG SCH ×2 (09:02→20:20)
[2022-02-02] MEDS: ASPIRIN 81 MG TAB.CHEW NG SCH (09:02)
[2022-02-02] MEDS: CHOLECALCIFEROL (VITAMIN D-3) 400 UNIT TABLET PO SCH (09:03)
[2022-02-02] MEDS: BISACODYL 10 MG/SUPPOSITORY RC SCH (09:03)
[2022-02-02] MEDS: CYANOCOBALAMIN 1000 mCg TABLET NG SCH (09:03)
[2022-02-02] MEDS: SOD FERRIC GLUC COMPLEX/SUC 125 MG in NS 100 ML IV SCH (14:17)
[2022-02-02] MEDS: MEROPENEM 500 MG in NS 50 ML IV SCH (16:43)
[2022-02-02] MEDS ORDERED: levETIRAcetam 500 MG TABLET ONE (20:14)
[2022-02-02] MEDS: ENOXAPARIN SODIUM 30 MG/0.3 ML SYRINGE SUBCUT SCH (20:20)
--- NOTE | 2022-02-02 21:34 | NUR ---
Dietitian Recommendations * Rec adjust EN regimen to Jevity 1.2 @ 50mL x 24h + Prostat BID -- This provides 2048 kcal (1848 w/o PS), 97g protein (67 g w/o PS), and 968 mL FW * Rc daily MVI (yossi-dillan), 250mg VIT C, 220mg zincate BID x 14 days for wound care * Rec Ruy BID when sepsis resolves Please refer to nutritional assessment for details, thanks! CC, MPH, RDN
[2022-02-03] VITALS (24 sets, daily range): BP systolic 92–143
[2022-02-03] MEDS: LevALBUTEROL HCL 1.25 MG/0.5 ML *CONC.* VIAL.NEB (XOPENEX CONC.) INH SCH ×4 (01:05→19:35)
[2022-02-03] MEDS: ACETYLCYSTEINE 20% 4 ML VIAL (RT) INH SCH ×4 (01:05→19:35)
[2022-02-03] MEDS: QUEtiapine FUMARATE 100 MG TABLET NG SCH ×3 (05:15→21:09)
[2022-02-03] MEDS: D5W 1,000 ML IV SCH ×2 (06:15→15:16)
[2022-02-03 06:43] LABS: ALBUMIN 1.6 g/dL (3.4-4.8); CALCIUM 10.3 mg/dL (8.4-11.0); CREATININE 1.92 mg/dL (0.55-1.30); POTASSIUM 3.2 mmol/L (3.5-5.1); TOTAL BILIRUBIN 0.2 mg/dL (0.0-1.0)
--- NOTE | 2022-02-03 07:20 | NUR ---
Received report from shift supervisor film processing RN, and assumed patient care.
[2022-02-03 08:04] LABS: BASOPHILS % (AUTO) 0.3 % (0.0-2.0); EOSINOPHILS # (AUTO) 0.9 K/uL (0.0-0.4); EOSINOPHILS % (AUTO) 10.8 % (0.0-4.0); HEMATOCRIT 25.3 % (36-48); HEMOGLOBIN 8.4 g/dL (12.0-16.0); LYMPHOCYTES # (AUTO) 2.6 K/uL (1.0-5.5); LYMPHOCYTES % (AUTO) 31.7 % (20.5-51.5); MEAN CORPUSCULAR HEMOGLOBIN 29 pg (27-31); MEAN CORPUSCULAR HGB CONC 33 % (32-36); MEAN CORPUSCULAR VOLUME 87 fL (79.0-98.0); MONOCYTES # (AUTO) 0.6 K/uL (0.0-1.0); MONOCYTES % (AUTO) 6.8 % (1.7-9.3); NEUTROPHILS # (AUTO) 4.2 K/uL (1.8-7.7); NEUTROPHILS % (AUTO) 50.4 % (40.0-70.0); RED BLOOD CELL COUNT(AUTO) 2.92 MIL/uL (4.2-6.2); RED CELL DISTRIBUTION WIDTH 19.8 % (9.0-15.0); WHITE BLOOD COUNT (AUTO) 8.3 K/uL (4.8-10.8)
--- NOTE | 2022-02-03 08:15 | NUR ---
Patient's call light is within reach, bed is in lowest position, no complications noted at the moment. Will reinforce if needed throughout the shift.
[2022-02-03] MEDS: BISACODYL 10 MG/SUPPOSITORY RC SCH (08:35)
[2022-02-03] MEDS: ATORVASTATIN 20 MG TABLET NG SCH (08:35)
[2022-02-03] MEDS: LevETIRAcetam 500 MG/5 ML UDC ORAL LIQUID NG SCH ×2 (08:35→20:22)
[2022-02-03] MEDS: DIVALPROEX SODIUM 125 MG CAP.(DEPAKOTE SPRINKLE) NG SCH ×2 (08:35→20:22)
[2022-02-03] MEDS: FAMOTIDINE 20 MG TABLET NG SCH (08:35)
[2022-02-03] MEDS: CYANOCOBALAMIN 1000 mCg TABLET NG SCH (08:35)
[2022-02-03] MEDS: CHOLECALCIFEROL (VITAMIN D-3) 400 UNIT TABLET PO SCH (08:35)
[2022-02-03] MEDS: ASPIRIN 81 MG TAB.CHEW NG SCH (08:35)
[2022-02-03 08:45] LABS: PLATELET COUNT (AUTO) 76 K/uL (130-430)
--- NOTE | 2022-02-03 10:49 | NUR ---
Dr. Costello rounded at bedside, MD is aware of patient's abnormal electrolytes (please see EMR for further details) regarding sodium and potassium level. MD is OK with current IV fluids order for patient and to continue to monitor lab values, MD is OK with starting free water flush of 100ml/6 hours. No additional orders noted at the moment and will wait for orders to be verified, will reinforce if needed throughout the shift.
--- NOTE | 2022-02-03 11:31 | NUR ---
Patient's father (Gatito) is at bedside, provided nursing updates and had no further questions noted during the conversation. No additional questions noted at the end of the conversation, and will reinforce if needed throughout the shift.
[2022-02-03] MEDS: SOD FERRIC GLUC COMPLEX/SUC 125 MG in NS 100 ML IV SCH (13:35)
[2022-02-03] MEDS ORDERED: POTASSIUM CHLORIDE 20 MEQ TAB.PRT.SR PO ONE (14:15)
--- NOTE | 2022-02-03 14:51 | NUR ---
Spoke with Mariella at [facility] . She stated patient's insurance is not contracted with [facility]. The patient will need to be transferred to contracted hospital. The contracted hospitals are [facility], [facility], [facility], [facility] and [facility]. I spoke w/ Dr Izaguirre, he stated patient will be discharged in 1-2 days, if the patient needs to transfer he would like the patient to go to [facility]. this was relayed to Mariella at [facility]- she stated the patient could stay at [facility] for 1-2 days and please give her report on 02/04.
[2022-02-03] MEDS ORDERED: ALBUMIN HUMAN 25% 200 ML IV ONE (15:00)
[2022-02-03] MEDS: MEROPENEM 500 MG in NS 50 ML IV SCH (15:04)
--- NOTE | 2022-02-03 15:04 | NUR ---
Dr. Izaguirre rounded at bedside, MD is aware of elevated lab values of sodium 150, and potassium in the 3.2, MD will place orders to replace abnormalities. Provided nursing updates, and had no further questions or new orders noted at the moment. Will reinforce if needed throughout the shift.
--- NOTE | 2022-02-03 17:22 | NUR ---
Performed linen change and provided CHG bath on patient, no BM noted at the moment, patient was able to tolerate the big turns and presented with no complications during the process. Will reinforce if needed throughout the shift.
--- NOTE | 2022-02-03 19:30 | NUR ---
PM assessment Received report from AM nurse using SBAR approach.
[2022-02-03] MEDS: ENOXAPARIN SODIUM 30 MG/0.3 ML SYRINGE SUBCUT SCH (20:22)
[2022-02-04] VITALS (24 sets, daily range): BP systolic 99–135
[2022-02-04] MEDS: ACETYLCYSTEINE 20% 4 ML VIAL (RT) INH SCH ×4 (01:27→20:01)
[2022-02-04] MEDS: LevALBUTEROL HCL 1.25 MG/0.5 ML *CONC.* VIAL.NEB (XOPENEX CONC.) INH SCH ×4 (01:27→19:48)
[2022-02-04] MEDS: D5W 1,000 ML IV SCH ×3 (02:29→22:45)
[2022-02-04] MEDS: QUEtiapine FUMARATE 100 MG TABLET NG SCH ×3 (05:58→21:03)
[2022-02-04 06:39] LABS: BASOPHILS % (AUTO) 0.2 % (0.0-2.0); EOSINOPHILS # (AUTO) 1.1 K/uL (0.0-0.4); HEMATOCRIT 24.4 % (36-48); HEMOGLOBIN 8.1 g/dL (12.0-16.0); LYMPHOCYTES # (AUTO) 2.6 K/uL (1.0-5.5); LYMPHOCYTES % (AUTO) 28.5 % (20.5-51.5); MEAN CORPUSCULAR HEMOGLOBIN 29 pg (27-31); MEAN CORPUSCULAR HGB CONC 33 % (32-36); MEAN CORPUSCULAR VOLUME 86 fL (79.0-98.0); MONOCYTES # (AUTO) 0.5 K/uL (0.0-1.0); MONOCYTES % (AUTO) 5.8 % (1.7-9.3); NEUTROPHILS # (AUTO) 4.8 K/uL (1.8-7.7); NEUTROPHILS % (AUTO) 53.5 % (40.0-70.0); RED BLOOD CELL COUNT(AUTO) 2.83 MIL/uL (4.2-6.2); RED CELL DISTRIBUTION WIDTH 19.3 % (9.0-15.0)
--- NOTE | 2022-02-04 07:05 | NUR ---
Received report from mayco Ramírez RN and assumed patient care.
[2022-02-04 07:46] LABS: CREATININE 1.57 mg/dL (0.55-1.30); POTASSIUM 3.4 mmol/L (3.5-5.1)
[2022-02-04 08:05] LABS: PLATELET COUNT (AUTO) 114 K/uL (130-430)
[2022-02-04] MEDS: BISACODYL 10 MG/SUPPOSITORY RC SCH (08:27)
[2022-02-04] MEDS: FAMOTIDINE 20 MG TABLET NG SCH (08:28)
[2022-02-04] MEDS: ATORVASTATIN 20 MG TABLET NG SCH (08:28)
[2022-02-04] MEDS: CYANOCOBALAMIN 1000 mCg TABLET NG SCH (08:28)
[2022-02-04] MEDS: LevETIRAcetam 500 MG/5 ML UDC ORAL LIQUID NG SCH ×2 (08:28→20:26)
[2022-02-04] MEDS: ASPIRIN 81 MG TAB.CHEW NG SCH (08:28)
[2022-02-04] MEDS: CHOLECALCIFEROL (VITAMIN D-3) 400 UNIT TABLET PO SCH (08:28)
[2022-02-04] MEDS: DIVALPROEX SODIUM 125 MG CAP.(DEPAKOTE SPRINKLE) NG SCH ×2 (08:28→20:26)
[2022-02-04 09:05] LABS: TOTAL IRON BIND. CAPACITY 99 ug/dL (250-450)
--- NOTE | 2022-02-04 10:00 | NUR ---
Called Dr. Izaguirre to follow up on patient for a possible downgrade, no answer and will wait for further instructions.
--- NOTE | 2022-02-04 11:05 | NUR ---
Dr. Costello rounded at bedside, provided nursing updates and MD is aware of patient's sodium 147, and potassium 3.4, no new orders noted at the moment per MD, continue to monitor per MD. MD is aware of patient being "stable" to be downgraded to out of ICU, per MD wait on primary MD for further instructions to be downgraded. No additional orders noted at the moment, will reinforce if needed throughout the shift.
[2022-02-04] MEDS: SOD FERRIC GLUC COMPLEX/SUC 125 MG in NS 100 ML IV SCH (13:21)
--- NOTE | 2022-02-04 14:00 | NUR ---
Called Dr. Izaguirre to follow up on patient for a possible downgrade, no answer and will wait for further instructions.
--- NOTE | 2022-02-04 15:02 | NUR ---
WOUND EVALUATION: Wound Consult received from Dr. Izaguirre. Thank you, Dr. Izaguirre, for the consult. Patient received in a Talpa Bed with an Isoflex CINDY mattress, nonverbal, nonresponsive to verbal commands. Patient is unable to turn independently. Russ Score is a 10. Past Medical History: Chronic Respiratory Failure, Encephalopathy, Hypertension, Seizure disorder, Encephalopathy, G-tube placement, Tracheostomy. Recent Labs: WBC 9.0, RBC 2.83, hemoglobin 8.1, hematocrit 24.4, platelets 114, sodium 147, potassium 3.4, chloride 114, BUN 21, creatinine 1.57, GFR 36, glucose 113, POC glucose 102, albumin 1.6. Microbiology: Blood culture results in progress. Urine culture reveals results positive for Klebsiella pneumoniae 8. MRSA screen results negative. Tracheal aspirate sputum culture results in progress. Intrinsic factors that delay wound healing: Chronic Respiratory Failure, Encephalopathy, Encephalopathy, severe Hypoalbuminemia, Hyperglycemia. Extrinsic factors that delay wound healing: Immobility. Wound Assessment: 1. Sacral area: Evolving sDTI, present on admission. Wound has 100% dull red tissue. No odor, scant sanguineous drainage. Nancy-wound of open area has black tissue, intact. Open area with dark discolored and dark red-colored tissue within intergluteal cleft measures 3.9 cm x 2.3 cm. Entire area measures 9.0 cm x 15.0, which also has dark discolored and dark red-colored tissue. Recommend: Cleanse wound with normal saline. Apply moisture barrier cream to nancy-wound. Apply Venelex ointment to wound bed. Cover with Sacral foam dressing. Do not apply any Venelex or moisture barrier cream to dark or red discolored areas. Perform wound care daily, and as needed for dressing soiling or dislodgement. 2. Left Lateral Posterior Heel: sDTI, present on admission. Site has purple discolored and dark discolored tissue. No odor, no drainage. Periwound intact. Wound measures 1.5 cm x 1.5 cm. Recommend: [place] site with Betadine. Allow Betadine to air dry. Cover site with foam dressing. Perform site care daily, and as needed for dressing soiling or dislodgment. Elevate heels at all times. Also recommend: Reposition patient every 2 hours with pillow support and off-load pressure areas with pillows for pressure re-distribution. Offload, elevate and float bilateral heels with pillows. Perform skin care and monitor skin integrity Q shift. Use moisture barrier cream on buttocks and other moisture susceptible areas QID and as needed for soiling. Place patient on a P5 100 low air-loss mattress.
--- NOTE | 2022-02-04 15:02 | NUR ---
Patient had a bowel movement, performed wound care on patient with wound care nurse, performed CHG bath on patient and patient tolerated the big turns. No complications noted at the moment, will reinforce if needed throughout the shift,
[2022-02-04] MEDS: MEROPENEM 1 GM in NS 100 ML IV SCH (15:35)
--- NOTE | 2022-02-04 17:57 | NUR ---
Dr. Izaguirre called on the phone to follow up on the possible downgrade order for patient from ICU, per Dr. Izaguirre states that he has not rounded on patient yet, no new orders noted at the moment. machine wedger (Yessi) is aware, will reinforce if needed throughout the shift.
--- NOTE | 2022-02-04 19:05 | NUR ---
OPENING NOTES: RECEIVED PATIENT FROM PARAMJIT. PATIENT WILL OPEN EYES TO NAME BUT VERY LETHARGIC. PATIENT IS TRACH AT 28%, 5L. PATIENT IS IN NORMAL SINUS RHYTHM, PEG WITH JEVITY 1.2 RUNNING AT 50 ML. PATIENT IS ISOLATION PRECAUTIONS, BYRNES CATHETER, LEFT SUBCLAVIAN TRIPLE LUMEN WITH D5W RUNNING AT 100 ML. PATIENT HAS A DTI ON THE COCCYX AND BILATERAL HEEL DISCOLORATION, ALL COVERED WITH MEPILEX DRESSING. BED IS AT THE LOWEST LEVEL, OXYGEN AND SUCTION WORKING, 3 SIDE RAILS UP, BRAKES ARE LOCKED, AND CALL LIGHT WITHIN REACH.
[2022-02-04] MEDS: ENOXAPARIN SODIUM 30 MG/0.3 ML SYRINGE SUBCUT SCH (20:26)
--- NOTE | 2022-02-04 20:30 | NUR ---
DR CLARK DID ROUNDS, OK TO DOWN GRADE PATIENT TO TELE.
[2022-02-05] VITALS (24 sets, daily range): BP systolic 97–128
[2022-02-05] MEDS: LevALBUTEROL HCL 1.25 MG/0.5 ML *CONC.* VIAL.NEB (XOPENEX CONC.) INH SCH ×4 (01:24→19:26)
[2022-02-05] MEDS: ACETYLCYSTEINE 20% 4 ML VIAL (RT) INH SCH ×4 (01:43→19:27)
[2022-02-05] MEDS: MEROPENEM 1 GM in NS 100 ML IV SCH ×2 (04:06→16:29)
[2022-02-05] MEDS: QUEtiapine FUMARATE 100 MG TABLET NG SCH ×3 (05:22→21:03)
[2022-02-05 06:50] LABS: BASOPHILS # (AUTO) 0.1 K/uL (0.0-0.2); BASOPHILS % (AUTO) 0.8 % (0.0-2.0); EOSINOPHILS # (AUTO) 1.2 K/uL (0.0-0.4); EOSINOPHILS % (AUTO) 12.3 % (0.0-4.0); HEMATOCRIT 24.4 % (36-48); HEMOGLOBIN 8.3 g/dL (12.0-16.0); LYMPHOCYTES # (AUTO) 2.7 K/uL (1.0-5.5); LYMPHOCYTES % (AUTO) 28.5 % (20.5-51.5); MEAN CORPUSCULAR HEMOGLOBIN 29 pg (27-31); MEAN CORPUSCULAR HGB CONC 34 % (32-36); MEAN CORPUSCULAR VOLUME 85 fL (79.0-98.0); MONOCYTES # (AUTO) 0.4 K/uL (0.0-1.0); MONOCYTES % (AUTO) 4.2 % (1.7-9.3); NEUTROPHILS # (AUTO) 5.2 K/uL (1.8-7.7); NEUTROPHILS % (AUTO) 54.2 % (40.0-70.0); RED BLOOD CELL COUNT(AUTO) 2.86 MIL/uL (4.2-6.2); RED CELL DISTRIBUTION WIDTH 18.3 % (9.0-15.0); WHITE BLOOD COUNT (AUTO) 9.5 K/uL (4.8-10.8)
--- NOTE | 2022-02-05 07:10 | NUR ---
Received report from FÁTIMA Joyner and assumed patient care.
[2022-02-05 07:21] LABS: ALBUMIN 2.3 g/dL (3.4-4.8); CALCIUM 9.7 mg/dL (8.4-11.0); CREATININE 1.44 mg/dL (0.55-1.30); POTASSIUM 3.6 mmol/L (3.5-5.1); TOTAL BILIRUBIN 0.2 mg/dL (0.0-1.0)
[2022-02-05 08:01] LABS: PLATELET COUNT (AUTO) 158 K/uL (130-430)
[2022-02-05 08:06] LABS: FOLATE (FOLIC ACID) 7.7 ng/mL (>3.0)
[2022-02-05] MEDS: D5W 1,000 ML IV SCH (09:01)
[2022-02-05] MEDS: FAMOTIDINE 20 MG TABLET NG SCH (09:02)
[2022-02-05] MEDS: LevETIRAcetam 500 MG/5 ML UDC ORAL LIQUID NG SCH ×2 (09:02→20:19)
[2022-02-05] MEDS: BALSAM PERU/CASTOR OIL 56.7 GM OINT...G. TP SCH (09:02)
[2022-02-05] MEDS: CHOLECALCIFEROL (VITAMIN D-3) 400 UNIT TABLET PO SCH (09:02)
[2022-02-05] MEDS: ATORVASTATIN 20 MG TABLET NG SCH (09:02)
[2022-02-05] MEDS: BISACODYL 10 MG/SUPPOSITORY RC SCH (09:02)
[2022-02-05] MEDS: ASPIRIN 81 MG TAB.CHEW NG SCH (09:02)
[2022-02-05] MEDS: CYANOCOBALAMIN 1000 mCg TABLET NG SCH (09:02)
[2022-02-05] MEDS: DIVALPROEX SODIUM 125 MG CAP.(DEPAKOTE SPRINKLE) NG SCH ×2 (09:02→20:19)
--- NOTE | 2022-02-05 10:11 | NUR ---
Patient requiring suction due to audible secretions from the tracheostomy, post trach care patient tolerated the suction and saturation maintained in the 95%s. Few moments later, patient had projectile vomit, vomit flew across patient's room, patient's vital signs remained the same and within patient's range, saturation did not drop. Placed tube feeds on hold, placed to suction, no residuals from the peg to the suction canister, positioned patient upright, and manually suctioned patient from PEG however no residuals came out. Informed admission discharge rn (Natalie), and she paged MD for further evaluation. Will continue to monitor and reinforce if needed throughout the shift.
--- NOTE | 2022-02-05 11:38 | NUR ---
Dr. Costello rounded at bedside, MD is aware of the situation that occurred this morning regarding patient's projectile vomiting. MD is OK with keeping patient NPO at the moment, and restart feeding later in the afternoon if patient tolerates feeding regarding residuals. Ordered abdomen ultrasound, chest xray, KUB abdomen, and cancelling transfer from ICU to telemetry for continuous monitor due to the projectile vomit, will inform Dr. Izaguirre about the situation. MD is aware of formed stools and is OK with placing colace medications for patient, will reinforce if needed throughout the shift.
--- NOTE | 2022-02-05 12:30 | NUR ---
Dr. Del Valle rounded at bedside, MD is aware of patient's projectile vomit session that occurred this morning. MD is OK with what Dr. Costello ordered, MD is aware of the cancellation of transfer to telemetry. No new orders noted at the moment, will reinforce if needed throughout the shift.
--- NOTE | 2022-02-05 13:00 | NUR ---
Upon assessment, patient looked pale and upon touch is cool. Checked the temperature 96.9F via temporal, checked BS: 83. Dr. Reid is at bedside provided nursing updates, and is aware of the projectile vomit that occurred this morning. MD is OK with changing current IV fluids to D10W at 50ml/hr (waiting for Superb to verify order) since patient is currently NPO. MD is aware of the concern with patient's sugar running within 80s, and is NPO, and the IV fluid that was cut down by half rate. No additional complications noted at the moment, will reinforce if needed throughout the shift.
[2022-02-05] MEDS: SOD FERRIC GLUC COMPLEX/SUC 125 MG in NS 100 ML IV SCH (13:15)
--- NOTE | 2022-02-05 13:15 | NUR ---
Nutrition F/U Admitting Diagnosis Septic shock Reviewed Pertinent Medical/Surgical Hx Medical Record Primary RN Medical History Comment: Per EMR: 61y non-verbal female from [facility] who presented with 24h worsening SOB and hypotension. Patient with extensive pmh: chronic respiratory failure, encephalopathy, HTN, seizure disorder with hx intracranial hemorrhage, dysphagia, g-tube dependent, and trach dependent. Patient found to have sepsis, UTI, dehydration, severe anemia, moderate PEM, and acute renal failure. Subjective Information: RD rounded to ICU and spoke w/ pt's primary RN. She reported that pt remains NPO at this time, pending results of chest XR and KUB. Per EMR review, pt had projectile vomited earlier; GRV: 5 ml 02/05; TF had been infusing as per physician order; abd is soft and non-distended w/ active bowel sounds; LBM x1 02/05. Current Diet Order/Nutrition Support: NPO x0 days Patient/Significant Other Unable To Verbalize Education Provided Not Indicated Pertinent Medications: D10W at 50 (408 kcal/day), IV iron, VIT b12, VIT D3, dulcolax suppository, levophed, SSI, keppra Pertinent Labs: H/H 8.3 L/24.4 L, CRE 1.44 H, BG 104 H, POC BG 104 H, ALB 2.3 L Height (Feet) 5 feet Height (Inches) 4.00 inches Weight (Pounds) 155 pounds -- stable since 02/01 Patient Weight 70.307 kg Body Mass Index 26.60 kg/m2 %IBW 128 [place]/Adjusted Body Weight 120lb/54.5kg Recent Weight Change Unable to assess Weight Status Overweight Gastrointestinal Symptoms None Difficulty With: Swallowing Food Allergies None noted Cultural/Ethnic/Zoroastrianism Belief Unable to assess Usual Diet At Home NPO - TF/ g-tube dependent: Glucerna 1.2 @ 40mL Skin Integrity Comment: Russ scale: 10 -- per Insole Stiffener note 02/04: 1. Sacral area: Evolving sDTI, present on admission. 2. Left Lateral Posterior Heel: sDTI, present on admission. Estimated Energy Expenditure (kcals/day) 2100- 2450 (30-35 kcal/kg d/t sepsis) Estimated Protein Required (g/day) 84-105 (1.2-1.5 g/kg d/t sepsis) Estimated Fluid Required (l/day) 2.1-2.4 (1mL/kcal) or per MD Problem/Etiology/Signs/Symptoms Swallowing difficulty r/t dysphagia a/e/b g-tube dependent, trach-dependent. *Ongoing Complicated GI function R/T unknown etiology AEB NPO status and GI workup. *New Expected Outcomes/Goals EN tolerated at goal rate, EN to provide >85% estimated nutrient needs, wt stable w/in 1-2lbs, improvements in skin integrity, bowel fxn improvements/ maintenance Dietitian Recommendations * Continue NPO * If/when med gallito, consider Vital AF 1.2 TF formula tropic feeds * Consider daily nephrovite, 250 mg VIT C, 220 mg zincate BID x14 days for wound care *Consider Ruy BID when sepsis resolves Follow Up High Risk: F/U in 2-3 days
--- NOTE | 2022-02-05 13:25 | NUR ---
Dietitian Recommendations * Continue NPO * If/when med gallito, consider Vital AF 1.2 TF formula tropic feeds * Consider daily nephrovite, 250 mg VIT C, 220 mg zincate BID x14 days for wound care *Consider Ruy BID when sepsis resolves LP, MS, RD Please refer to Nutrition F/U for details.
[2022-02-05] MEDS: DEXTROSE 10%-WATER 1,000 ML IV SCH (14:22)
--- NOTE | 2022-02-05 14:45 | NUR ---
Performed CHG bath on patient, patient tolerated the big turns, no complications noted, wound dressings are intact and clean. No additional problem occurred at the moment, will reinforce if needed throughout the shift.
--- NOTE | 2022-02-05 17:49 | NUR ---
orthopedic tech at bedside for the abdominal ultrasound, will reinforce if needed throughout the shift.
--- NOTE | 2022-02-05 19:05 | NUR ---
RECEIVED BEDSIDE REPORT FROM PARAMJIT. PATIENT TLE ORDER WAS CANCELLED DUE TO PROJECTILE VOMITING EARLIER TODAY. PATIENT APPEARS TO BE COMFORTABLE AND RESTING. CALLED PATIENTS NAME AND SHE OPENED HER EYES BUT DOES NOT TRACK. PATIENT IS T PIECE TRACH AT 28% FIO2, 5L. TUBE FEEDING IS OFF PENDING RESULTS FROM ABDOMINAL ULTRASOUND. PATIENT HAS A LEFT SUBCLAVIAN TRIPLE LUMEN THAT IS PATENT WITH D10 RUNNING AT 50ML/HR. BED IS AT THE LOWEST LEVEL, BRAKES ARE LOCKED, 3 SIDE RAILS UP, AND CALL LIGHT WITHIN REACH.
[2022-02-05] MEDS: DOCUSATE SODIUM 100 MG CAPSULE PO SCH (20:19)
[2022-02-05] MEDS: ENOXAPARIN SODIUM 30 MG/0.3 ML SYRINGE SUBCUT SCH (20:19)
--- NOTE | 2022-02-05 20:30 | NUR ---
INQUIRED WITH CHARGE NURSE (SANDRA) IF MEDICATION SHOULD STILL BE GIVEN IF NPO. SHE SAID TO GIVE THE MEDICATIONS AND ASSESS THE PATIENT TO TOLERATION. CHECKED RESIDUAL AND THERE WAS 0, PRECEDED TO GIVE PATIENT MEDICATION WHICH SHE TOLERATED AT FIRST. 5 MINUTES LATER THE PATIENT VOMITED YELLOW CLEAR LIQUID. CHECKED PATIENT RESIDUAL THAT WAS 0 AGAIN. LISTEN TO PATIENT LUNGS AND DID NOT HEAR CRACKLES.
[2022-02-06] VITALS (23 sets, daily range): BP systolic 104–129
[2022-02-06] MEDS: LevALBUTEROL HCL 1.25 MG/0.5 ML *CONC.* VIAL.NEB (XOPENEX CONC.) INH SCH ×4 (01:21→19:40)
[2022-02-06] MEDS: ACETYLCYSTEINE 20% 4 ML VIAL (RT) INH SCH ×4 (01:21→19:40)
[2022-02-06] MEDS: ONDANSETRON HCL 4 MG/2 ML VIAL IVP PRN ×3 (03:05→20:34)
--- NOTE | 2022-02-06 03:05 | NUR ---
WHEN IN TO CHECK ON THE PATIENT WHEN I NOTICES SHE HAD A LOT OF CRACKLE NOISES COMING FORM HER T-PIECE AND SHE WAS COUGHING. SUCTIONED PATIENT WITH WHITE THICK SECRETIONS. PATIENT IMMEDIATELY STARTED TO VOMIT WITH YELLOW EMESIS. GAVE PATIENT ZOFRAN FOR NAUSEA.
[2022-02-06] MEDS: MEROPENEM 1 GM in NS 100 ML IV SCH ×2 (04:02→16:18)
[2022-02-06] MEDS: QUEtiapine FUMARATE 100 MG TABLET NG SCH ×3 (05:26→21:05)
[2022-02-06 06:42] LABS: BASOPHILS % (AUTO) 0.4 % (0.0-2.0); EOSINOPHILS # (AUTO) 0.9 K/uL (0.0-0.4); EOSINOPHILS % (AUTO) 10.3 % (0.0-4.0); HEMOGLOBIN 8.1 g/dL (12.0-16.0); LYMPHOCYTES # (AUTO) 2.8 K/uL (1.0-5.5); LYMPHOCYTES % (AUTO) 30.4 % (20.5-51.5); MEAN CORPUSCULAR HEMOGLOBIN 29 pg (27-31); MEAN CORPUSCULAR HGB CONC 34 % (32-36); MEAN CORPUSCULAR VOLUME 86 fL (79.0-98.0); MONOCYTES # (AUTO) 0.5 K/uL (0.0-1.0); MONOCYTES % (AUTO) 5.5 % (1.7-9.3); NEUTROPHILS # (AUTO) 4.9 K/uL (1.8-7.7); NEUTROPHILS % (AUTO) 53.4 % (40.0-70.0); RED CELL DISTRIBUTION WIDTH 18.2 % (9.0-15.0); WHITE BLOOD COUNT (AUTO) 9.2 K/uL (4.8-10.8)
[2022-02-06 07:30] LABS: ALBUMIN 2.2 g/dL (3.4-4.8); CALCIUM 9.8 mg/dL (8.4-11.0); CREATININE 1.39 mg/dL (0.55-1.30); POTASSIUM 3.3 mmol/L (3.5-5.1); TOTAL BILIRUBIN 0.3 mg/dL (0.0-1.0)
[2022-02-06 07:42] LABS: PLATELET COUNT (AUTO) 113 K/uL (130-430)
[2022-02-06] MEDS: ATORVASTATIN 20 MG TABLET NG SCH (09:21)
[2022-02-06] MEDS: ASPIRIN 81 MG TAB.CHEW NG SCH (09:21)
[2022-02-06] MEDS: LevETIRAcetam 500 MG/5 ML UDC ORAL LIQUID NG SCH ×2 (09:21→20:39)
[2022-02-06] MEDS: DOCUSATE SODIUM 100 MG CAPSULE PO SCH ×2 (09:21→20:39)
[2022-02-06] MEDS: FAMOTIDINE 20 MG TABLET NG SCH (09:21)
[2022-02-06] MEDS: CHOLECALCIFEROL (VITAMIN D-3) 400 UNIT TABLET PO SCH (09:21)
[2022-02-06] MEDS: BISACODYL 10 MG/SUPPOSITORY RC SCH (09:21)
[2022-02-06] MEDS: DIVALPROEX SODIUM 125 MG CAP.(DEPAKOTE SPRINKLE) NG SCH ×2 (09:21→20:39)
[2022-02-06] MEDS: CYANOCOBALAMIN 1000 mCg TABLET NG SCH (09:22)
[2022-02-06] MEDS: DEXTROSE 10%-WATER 1,000 ML IV SCH (10:00)
[2022-02-06] MEDS: BALSAM PERU/CASTOR OIL 56.7 GM OINT...G. TP SCH (11:00)
[2022-02-06] MEDS ORDERED: POTASSIUM CHLORIDE 20 MEQ/PKT PACKET PO ONE (11:00)
--- NOTE | 2022-02-06 11:00 | NUR ---
Called and spoke with Dr Quan. Updated MD with patient's condition and lab works. Orders noted and carried out.
--- NOTE | 2022-02-06 11:57 | NUR ---
Dr Costello at bedside. Updated MD. No orders at this time
[2022-02-06] MEDS: SOD FERRIC GLUC COMPLEX/SUC 125 MG in NS 100 ML IV SCH (15:16)
--- NOTE | 2022-02-06 16:54 | NUR ---
Called Dr. Torres with a consult,spoke with Mariann from the exchange
--- NOTE | 2022-02-06 19:20 | NUR ---
OPENING NOTES: RECEIVED BEDSIDE REPORT FROM KAYLA. PATIENTS OPENS EYES TO NAME BUT DOES NOT TRACK. PATIENT HAS T PIECE TRACH AT 28% FIO2, 5L. TUBE FEEDING IS AT 20 ML WITH NO RESIDUALS OR VOMITING. PATIENT HAS A LEFT SUBCLAVIAN TRIPLE LUMEN THAT IS PATENT WITH D10 RUNNING AT 50ML/HR. PATIENT HAS REDNESS ON COCCYX AND DTI BILATERAL HEELS. BED IS AT THE LOWEST LEVEL, BRAKES ARE LOCKED, 3 SIDE RAILS UP, AND CALL LIGHT WITHIN REACH.
[2022-02-06] MEDS: ENOXAPARIN SODIUM 30 MG/0.3 ML SYRINGE SUBCUT SCH (20:39)
[2022-02-07] VITALS (21 sets, daily range): BP systolic 89–142
[2022-02-07] MEDS: LevALBUTEROL HCL 1.25 MG/0.5 ML *CONC.* VIAL.NEB (XOPENEX CONC.) INH SCH ×4 (01:10→19:45)
[2022-02-07] MEDS: ACETYLCYSTEINE 20% 4 ML VIAL (RT) INH SCH ×4 (01:10→19:45)
[2022-02-07] MEDS: MEROPENEM 1 GM in NS 100 ML IV SCH (04:06)
[2022-02-07] MEDS: DEXTROSE 10%-WATER 1,000 ML IV SCH ×2 (05:20→09:30)
[2022-02-07] MEDS: QUEtiapine FUMARATE 100 MG TABLET NG SCH ×2 (05:20→14:15)
[2022-02-07 07:02] LABS: BASOPHILS % (AUTO) 0.5 % (0.0-2.0); EOSINOPHILS # (AUTO) 0.8 K/uL (0.0-0.4); EOSINOPHILS % (AUTO) 9.6 % (0.0-4.0); HEMATOCRIT 23.5 % (36-48); HEMOGLOBIN 8.1 g/dL (12.0-16.0); LYMPHOCYTES # (AUTO) 2.9 K/uL (1.0-5.5); LYMPHOCYTES % (AUTO) 33.1 % (20.5-51.5); MEAN CORPUSCULAR HEMOGLOBIN 29 pg (27-31); MEAN CORPUSCULAR HGB CONC 34 % (32-36); MEAN CORPUSCULAR VOLUME 85 fL (79.0-98.0); MONOCYTES # (AUTO) 0.6 K/uL (0.0-1.0); MONOCYTES % (AUTO) 6.8 % (1.7-9.3); NEUTROPHILS # (AUTO) 4.4 K/uL (1.8-7.7); RED BLOOD CELL COUNT(AUTO) 2.77 MIL/uL (4.2-6.2); RED CELL DISTRIBUTION WIDTH 17.5 % (9.0-15.0); WHITE BLOOD COUNT (AUTO) 8.7 K/uL (4.8-10.8)
[2022-02-07 07:26] LABS: PLATELET COUNT (AUTO) 180 K/uL (130-430)
--- NOTE | 2022-02-07 08:00 | NUR ---
AM ASSESSMENT PT AFEBRILE, SHE OPENS HER EYES WHILE GIVING CARE, REPOSITIONED IN BED, HEAD OF BED ELEVATED, GTUBE FEEDING, DRY DRESSING REMOVED FROM GTUBE SITE, SKIN BREAKDOWN, CLEANSED AREA GENTLY WITH SALINE AND PAT DRY, DRY SLIT GAUZE APPLIED TO PREVENT RUBBING OF GTUBE RETENTION RING AGAINST THE SKIN. TOLERATING FEEDING WELL. EDEMA TO EXTREMITIES, GENERALIZED WEAKNESS. PLACED LOWER EXTREMITIES UP ON PILLOW.
[2022-02-07 08:12] LABS: ALBUMIN 2.2 g/dL (3.4-4.8); CALCIUM 9.6 mg/dL (8.4-11.0); CREATININE 1.4 mg/dL (0.55-1.30); POTASSIUM 3.4 mmol/L (3.5-5.1); TOTAL BILIRUBIN 0.2 mg/dL (0.0-1.0)
[2022-02-07] MEDS: FAMOTIDINE 20 MG TABLET NG SCH (08:58)
[2022-02-07] MEDS: ASPIRIN 81 MG TAB.CHEW NG SCH (08:58)
[2022-02-07] MEDS: DOCUSATE SODIUM 100 MG CAPSULE PO SCH (08:58)
[2022-02-07] MEDS: DIVALPROEX SODIUM 125 MG CAP.(DEPAKOTE SPRINKLE) NG SCH (08:58)
[2022-02-07] MEDS: ATORVASTATIN 20 MG TABLET NG SCH (08:59)
[2022-02-07] MEDS: BISACODYL 10 MG/SUPPOSITORY RC SCH (08:59)
[2022-02-07] MEDS: CHOLECALCIFEROL (VITAMIN D-3) 400 UNIT TABLET PO SCH (08:59)
[2022-02-07] MEDS: CYANOCOBALAMIN 1000 mCg TABLET NG SCH (09:00)
[2022-02-07] MEDS: LevETIRAcetam 500 MG/5 ML UDC ORAL LIQUID NG SCH (09:00)
[2022-02-07] MEDS: BALSAM PERU/CASTOR OIL 56.7 GM OINT...G. TP SCH (09:09)
[2022-02-07] MEDS ORDERED: TIGECYCLINE 100 MG in NS 100 ML IV ONE (13:00)
--- NOTE | 2022-02-07 13:05 | NUR ---
MIDDLE SCHOOL TEACHER DR SOLER AT BEDSIDE, WILL DOWNGRADE PT TO TELEMETRY STATUS.
[2022-02-07] MEDS: SOD FERRIC GLUC COMPLEX/SUC 125 MG in NS 100 ML IV SCH (15:39)
--- NOTE | 2022-02-07 19:00 | NUR ---
Received pt from outgoing nurse awake,opening eyes spontaneously but Does not Track. on oxygen 5L/28% via T.piece.Trac intact.cardiac monitor technician in sinus Rhythm,HR 85/min,BP 118/61 Temp:97.6 A.RR:12 SPO2-100%.Jevity 1.2@ 20 ml with water flush 100 ml q6 through a G,tube. Central line patent to left upper arm flushing well.on 10% Dex @ 50cc /hr.Fall catheter is patent draining yellow urine. foam dressing to skin tear on left upper arm,discoloration to left heel,DTI to coccyx with Edema to bilateral arms and lower legs. moved her to med/Surg Tele floor Rm 134-A and report given to Sveta SHINE
--- NOTE | 2022-02-07 20:10 | NUR ---
ADMIT NOTE Received pt from ICU at 2009 with a diagnosis of septic shock and UTI.Patient is not alert or oriented. Patient is on 5L oxygen via trach. Telemonitor box #14, SR HR 84. Vital signs are stable. Admission process initiated, bed at lowest position, alarm on.
[2022-02-08] MEDS: ENOXAPARIN SODIUM 30 MG/0.3 ML SYRINGE SUBCUT SCH ×2 (00:03→21:37)
[2022-02-08] MEDS: DIVALPROEX SODIUM 125 MG CAP.(DEPAKOTE SPRINKLE) NG SCH ×3 (00:04→21:36)
[2022-02-08] MEDS: QUEtiapine FUMARATE 100 MG TABLET NG SCH ×4 (00:05→21:36)
[2022-02-08] MEDS: DOCUSATE SODIUM 100 MG CAPSULE PO SCH ×3 (00:05→21:35)
[2022-02-08] MEDS: LevETIRAcetam 500 MG/5 ML UDC ORAL LIQUID NG SCH ×3 (00:06→21:35)
[2022-02-08] MEDS: TIGECYCLINE 50 MG in NS 100 ML IV SCH ×3 (00:08→21:38)
[2022-02-08] MEDS: ACETYLCYSTEINE 20% 4 ML VIAL (RT) INH SCH ×4 (02:01→20:00)
[2022-02-08] MEDS: LevALBUTEROL HCL 1.25 MG/0.5 ML *CONC.* VIAL.NEB (XOPENEX CONC.) INH SCH ×4 (02:02→20:00)
[2022-02-08 04:00] VITALS: BP_SYST 113
[2022-02-08 06:55] LABS: BASOPHILS % (AUTO) 0.3 % (0.0-2.0); EOSINOPHILS % (AUTO) 9.7 % (0.0-4.0); HEMATOCRIT 24.2 % (36-48); HEMOGLOBIN 8.3 g/dL (12.0-16.0); LYMPHOCYTES % (AUTO) 30.4 % (20.5-51.5); MEAN CORPUSCULAR HEMOGLOBIN 29 pg (27-31); MEAN CORPUSCULAR HGB CONC 34 % (32-36); MEAN CORPUSCULAR VOLUME 85 fL (79.0-98.0); MONOCYTES # (AUTO) 0.7 K/uL (0.0-1.0); MONOCYTES % (AUTO) 7.3 % (1.7-9.3); NEUTROPHILS # (AUTO) 5.1 K/uL (1.8-7.7); NEUTROPHILS % (AUTO) 52.3 % (40.0-70.0); RED BLOOD CELL COUNT(AUTO) 2.84 MIL/uL (4.2-6.2); RED CELL DISTRIBUTION WIDTH 17.7 % (9.0-15.0); WHITE BLOOD COUNT (AUTO) 9.8 K/uL (4.8-10.8)
--- NOTE | 2022-02-08 07:00 | NUR ---
CLOSING NOTES Patient remains stable after transfer from ICU. Vital signs are WNL, breathing is non-labored, central line is patent, Gtube running at 40 with no residual, Fall catheter secured and emptied, and no BM. Pillows supporting legs and feet adjusted regularly. Patient shows no sign of discomfort and is resting in bed with eyes closed. Bed at lowest position, bed alarm on.
[2022-02-08 07:07] LABS: CALCIUM 10.1 mg/dL (8.4-11.0); CREATININE 1.23 mg/dL (0.55-1.30); POTASSIUM 3.6 mmol/L (3.5-5.1)
--- NOTE | 2022-02-08 07:40 | NUR ---
OPENING NOTE RECEIVED SBAR FROM ENVIRONMENTAL SAMPLING TECHNICIAN RN. PT IN BED AND LOCKED. RESPIRATIONS EVEN, REGULAR, AND NON-LABORED VIA TRACH. BYRNES DRAINING BY GRAVITY. G-TUBE RUNNING ORDERED.
[2022-02-08 07:54] LABS: PLATELET COUNT (AUTO) 178 K/uL (130-430)
[2022-02-08 08:00] VITALS: BP_SYST 139
[2022-02-08 08:30] VITALS: BP_SYST 139
--- NOTE | 2022-02-08 09:04 | NUR ---
ALLERGY PAGED DR CLARK. IN CHART IT STATES THAT PATIENT IS ALLERGIC TO DEPAKOTE. PATIENT IS ORDERED DEPAKOTE. UPDATED INFORMATION IN [employer].
--- NOTE | 2022-02-08 09:08 | NUR ---
ALLERGY INFORMED DR CLARK OF ALLERGY TO DEPAKOTE, PER DR CLARK CONTINUE GIVING MEDICATION ORDERED
[2022-02-08] MEDS: CHOLECALCIFEROL (VITAMIN D-3) 400 UNIT TABLET PO SCH (09:59)
[2022-02-08] MEDS: BISACODYL 10 MG/SUPPOSITORY RC SCH (09:59)
[2022-02-08] MEDS: ATORVASTATIN 20 MG TABLET NG SCH (09:59)
[2022-02-08] MEDS: FAMOTIDINE 20 MG TABLET NG SCH (09:59)
[2022-02-08] MEDS: CYANOCOBALAMIN 1000 mCg TABLET NG SCH (10:00)
[2022-02-08] MEDS: ASPIRIN 81 MG TAB.CHEW NG SCH (10:01)
[2022-02-08] MEDS: BALSAM PERU/CASTOR OIL 56.7 GM OINT...G. TP SCH (10:44)
[2022-02-08 11:33] VITALS: BP_SYST 137
--- NOTE | 2022-02-08 11:37 | NUR ---
Discharge Planning: DCP faxed pt referral to [facility] [phone]. DCP to follow up Addendum: 02/08/22 at 1508 by Leena Moore DP [facility] [phone] accepted pt to Rm 42, pending dc order CM aware.
[2022-02-08 15:53] VITALS: BP_SYST 103
--- NOTE | 2022-02-08 19:36 | NUR ---
CLOSING NOTE PROVIDED SBAR TO NIGHT RN. PT IN BED. PED IS LOW AND LOCKED. RESPIRATIONS EVEN, REGULAR, AND NON-LABORED WITH O2 TRACH. BYRNES CATHETER DRAINING BY GRAVITY. G-TUBE FEEDING ORDERED. IV SITE REMAIN CLEAN AND INTACT. ENDORSED CARE.
[2022-02-08 20:00] VITALS: BP_SYST 119
--- NOTE | 2022-02-08 21:36 | NUR ---
Meds Scheduled meds given. GT assessed for residual and zero amount noted. Administered meds via GT, provided 150ml FWF, tolerated. IV Tigacly administered and infusing well. Safety, aspiration, and isolation precautions in place.
--- NOTE | 2022-02-09 00:28 | NUR ---
Accucheck obtained result of 93mg/dL, no coverage. VSS, no distress.
[2022-02-09 01:13] VITALS: BP_SYST 124
[2022-02-09] MEDS: LevALBUTEROL HCL 1.25 MG/0.5 ML *CONC.* VIAL.NEB (XOPENEX CONC.) INH SCH ×3 (01:13→14:00)
[2022-02-09] MEDS: ACETYLCYSTEINE 20% 4 ML VIAL (RT) INH SCH ×3 (01:13→14:00)
--- NOTE | 2022-02-09 02:25 | NUR ---
wound care / pictures Wound care provided to sacro-buttocks, bilateral heels, left arm, and G-tube exit site. Pictures taken per hospital policy. Details updated in [facility] charting.
[2022-02-09] MEDS: QUEtiapine FUMARATE 100 MG TABLET NG SCH ×2 (06:24→13:39)
[2022-02-09 07:44] LABS: ALBUMIN 2.4 g/dL (3.4-4.8); BASOPHILS # (AUTO) 0.1 K/uL (0.0-0.2); BASOPHILS % (AUTO) 0.6 % (0.0-2.0); CALCIUM 9.8 mg/dL (8.4-11.0); CREATININE 1.23 mg/dL (0.55-1.30); EOSINOPHILS # (AUTO) 0.8 K/uL (0.0-0.4); EOSINOPHILS % (AUTO) 8.3 % (0.0-4.0); HEMATOCRIT 25.6 % (36-48); HEMOGLOBIN 8.7 g/dL (12.0-16.0); LYMPHOCYTES % (AUTO) 39.3 % (20.5-51.5); MEAN CORPUSCULAR HEMOGLOBIN 29 pg (27-31); MEAN CORPUSCULAR HGB CONC 34 % (32-36); MEAN CORPUSCULAR VOLUME 86 fL (79.0-98.0); MONOCYTES # (AUTO) 0.8 K/uL (0.0-1.0); NEUTROPHILS # (AUTO) 4.5 K/uL (1.8-7.7); NEUTROPHILS % (AUTO) 43.8 % (40.0-70.0); POTASSIUM 3.8 mmol/L (3.5-5.1); RED BLOOD CELL COUNT(AUTO) 2.98 MIL/uL (4.2-6.2); RED CELL DISTRIBUTION WIDTH 18.2 % (9.0-15.0); TOTAL BILIRUBIN 0.2 mg/dL (0.0-1.0); WHITE BLOOD COUNT (AUTO) 10.2 K/uL (4.8-10.8)
[2022-02-09] MEDS: ASPIRIN 81 MG TAB.CHEW NG SCH (08:26)
[2022-02-09] MEDS: DOCUSATE SODIUM 100 MG CAPSULE PO SCH (08:26)
[2022-02-09] MEDS: ATORVASTATIN 20 MG TABLET NG SCH (08:26)
[2022-02-09] MEDS: CYANOCOBALAMIN 1000 mCg TABLET NG SCH (08:26)
[2022-02-09] MEDS: FAMOTIDINE 20 MG TABLET NG SCH (08:27)
[2022-02-09] MEDS: DIVALPROEX SODIUM 125 MG CAP.(DEPAKOTE SPRINKLE) NG SCH (08:27)
[2022-02-09] MEDS: BISACODYL 10 MG/SUPPOSITORY RC SCH (08:28)
[2022-02-09 08:30] VITALS: BP_SYST 136
[2022-02-09] MEDS: BALSAM PERU/CASTOR OIL 56.7 GM OINT...G. TP SCH (08:30)
[2022-02-09] MEDS: CHOLECALCIFEROL (VITAMIN D-3) 400 UNIT TABLET PO SCH (08:38)
[2022-02-09] MEDS: LevETIRAcetam 500 MG/5 ML UDC ORAL LIQUID NG SCH (08:52)
[2022-02-09 09:07] LABS: PLATELET COUNT (AUTO) 204 K/uL (130-430)
[2022-02-09] MEDS ORDERED: LORazepam 1 MG TABLET NG PRN (09:30)
[2022-02-09] MEDS: TIGECYCLINE 50 MG in NS 100 ML IV SCH (10:48)
[2022-02-09 13:00] VITALS: BP_SYST 122
[2022-02-09 16:30] VITALS: BP_SYST 109
--- NOTE | 2022-02-09 16:44 | NUR ---
PT'S FAMILY , LUIZ FERNANDEZ MADE AWARE THAT PT IS GOING TO [facility] TODAY. SHE ACKNOWLEDGED AND SAID SHE WILL INFORM HER OTHER FAMILY MEMBERS.
[2022-02-09 17:06] VITALS: BP_SYST 109
--- NOTE | 2022-02-09 19:05 | NUR ---
OPENING NOTE REPORT RECEIVED FROM DAYSORFT NURSE. PATIENT RECEIVED LYING IN BED, EYES CLOSED, RESTING. NO S/S OF ACUTE DISTRESS. BREATHING EVEN AND UNLABORED. TRACH ATTACHED TO 5L OF OXYGEN. TOLERATING WELL. HOB RAISED. IV PATENT, NO SIGNS OF INFILTRATION OR INFECTION NOTED. TUBE FEEDING INFUSING WELL. BYRNES ATTACHED, SECURED, AND DRAINING BY GRAVITY. BED ALARM ON. BED IS LOCKED AND AT LOWEST POSITION. WILL CONTINUE TO MONITOR.
--- NOTE | 2022-02-09 19:30 | NUR ---
DISCHARGE BEDSIDE REPORT GIVEN TO [facility] EMT'S, TOBY AND JANY. PATIENT IN BED RESTING. NO S/S OF ACUTE DISTRESS. BREATHING EVEN AND UNLABORED. HOB RAISED. TRACH ATTACHED TO 5L OF OXYGEN. TUBE FEEDING STOPPED AT THIS TIME AND DISCONNECTED. IV SITE PATENT, NO SIGNS OF INFILTRATION OR INFECTION NOTED. BYRNES ATTACHED, SECURED, EMPTIED AT THIS TIME. VITALS STABLE. ALL QUESTIONS CONCERNS ANSWERED FROM EMT. REPORT ALREADY GIVEN TO WETS OSEGUERA RN. PATIENT ESCORTED OUT OF UNIT AT THIS TIME VIA GURNEY, WITH enrichment specialist.
== END 2022-02-09 19:30 | DRG 871 ==
LOC: SED 14:43 → SIC 18:04 → STU 02-07 20:15
PROVIDERS: ADMIT Family Medicine; ATTEND Family Medicine
PROC: 02HV33Z Insertion of Infusion Device into Superior Vena Cava, Percutaneous Approach (ICD-10-PCS; principal; 2022-01-30)
PROC: 30233N1 Transfusion of Nonautologous Red Blood Cells into Peripheral Vein, Percutaneous Approach (ICD-10-PCS; 2022-02-01)
DX: A41.9 Sepsis, unspecified organism (principal); J18.9 Pneumonia, unspecified organism; R65.21 Severe sepsis with septic shock; N17.0 Acute kidney failure with tubular necrosis; Z16.19 Resistance to other specified beta lactam antibiotics; Z16.24 Resistance to multiple antibiotics; Z99.11 Dependence on respirator [ventilator] status; J96.11 Chronic respiratory failure with hypoxia; G93.40 Encephalopathy, unspecified; E44.0 Moderate protein-calorie malnutrition; E87.0 Hyperosmolality and hypernatremia; N39.0 Urinary tract infection, site not specified; F03.90 Unspecified dementia, unspecified severity, without behavioral disturbance, psychotic disturbance, mood disturbance, and anxiety; B96.1 Klebsiella pneumoniae [K. pneumoniae] as the cause of diseases classified elsewhere; Z20.822 Contact with and (suspected) exposure to COVID-19; I10 Essential (primary) hypertension; G40.909 Epilepsy, unspecified, not intractable, without status epilepticus; E86.0 Dehydration; D64.9 Anemia, unspecified; Z68.26 Body mass index [BMI] 26.0-26.9, adult; Z93.1 Gastrostomy status; Z93.0 Tracheostomy status; Z87.440 Personal history of urinary (tract) infections; Z87.01 Personal history of pneumonia (recurrent); Z86.73 Personal history of transient ischemic attack (TIA), and cerebral infarction without residual deficits
CPT/HCPCS: 36415; 36430; 71045; 74018; 76770; 80048; 80053; 80164; 81000; 82542; 82607; 82728; 82746; 82962; 83540; 83550; 83605; 85025; 86886; 86900; 86901; 86920; 87040; 87070-TC; 87081; 87086; 87205-TC; 93005; 94640; 94760; 96374; 96375; 99291; G0378; J1650; J2185; J2405; J2916; J3243; J3370; J7050; J7608; J7612; P9021

== ENCOUNTER 2022-07-18 18:46 | Emergency (ER) | payer BC, MEDICAID ==
[~2022-07-18] VITALS: Ht 170.2 cm; Wt 64.4 kg
[2022-07-18 19:23] VITALS: BP_SYST 110
[2022-07-18 20:26] LABS: BASOPHILS # (AUTO) 0.1 K/uL (0.0-0.2); BASOPHILS % (AUTO) 0.5 % (0.0-2.0); EOSINOPHILS # (AUTO) 0.7 K/uL (0.0-0.4); EOSINOPHILS % (AUTO) 6.4 % (0.0-4.0); HEMOGLOBIN 7.7 g/dL (12.0-16.0); LYMPHOCYTES # (AUTO) 2.7 K/uL (1.0-5.5); LYMPHOCYTES % (AUTO) 24.9 % (20.5-51.5); MEAN CORPUSCULAR HEMOGLOBIN 33 pg (27-31); MEAN CORPUSCULAR HGB CONC 35 % (32-36); MEAN CORPUSCULAR VOLUME 93 fL (79.0-98.0); MONOCYTES # (AUTO) 0.7 K/uL (0.0-1.0); MONOCYTES % (AUTO) 6.3 % (1.7-9.3); NEUTROPHILS # (AUTO) 6.8 K/uL (1.8-7.7); NEUTROPHILS % (AUTO) 61.9 % (40.0-70.0); RED BLOOD CELL COUNT(AUTO) 2.37 MIL/uL (4.2-6.2); RED CELL DISTRIBUTION WIDTH 12.8 % (9.0-15.0)
[2022-07-18 20:52] LABS: CALCIUM 9.9 mg/dL (8.4-11.0); CREATININE 1.22 mg/dL (0.55-1.30)
[2022-07-18 20:56] LABS: ALBUMIN 3.2 g/dL (3.4-4.8); TOTAL BILIRUBIN 0.3 mg/dL (0.0-1.0)
--- NOTE | 2022-07-18 22:05 | NUR ---
MD DUKE AT BEDSIDE EXAMINING PT.
--- NOTE | 2022-07-18 22:58 | NUR ---
COVID/MRSA order canceled, per MD Main.
--- NOTE | 2022-07-18 23:07 | NUR ---
Patient to be discharged back to [facility]. Copy of nursing notes, lab reports, Physicians Orders to be sent with patient. Report called to [facility] at receiving facility. Ambulance service to be called for transfer. ETA is PENDING.
[2022-07-19] MEDS ORDERED: DIPHENHYDRAMINE INJ 50 MG/ML VIAL IVP ONE (04:00)
[2022-07-19] MEDS ORDERED: DIPHENHYDRAMINE INJ 50 MG/ML VIAL IM ONE (04:15)
--- NOTE | 2022-07-19 08:06 | NUR ---
pt recieved vss, nad, pt resting semi santizo. will cont to monitor.
[2022-07-19 08:49] VITALS: BP_SYST 134
--- NOTE | 2022-07-19 08:50 | NUR ---
PT CLEANED/CHANGED, READJUSTED, RT CALLED TO HELP WITH TRACH SUCTION, AM TRANSPORT ARRIVED, PT VSS, OXYGEN TO TRACH AT 4LPMPatient to be transferred to [facility]. Receiving facility has accepting physician and available space. ER physician has signed transfer form. Patient or responsible constitution party has agreed to transfer and signed form. Patient belongings inventoried and will be sent with patient. Copy of nursing notes, lab reports, EKG, Physicians Orders and X-rays to be sent with patient. Report called [facility] at receiving facility. AM ambulance service has been called for transfer. ETA is 0830.
== END 2022-07-19 08:49 ==
LOC: SED 18:46
DX: D64.9 Anemia, unspecified (principal); R79.9 Abnormal finding of blood chemistry, unspecified; E11.9 Type 2 diabetes mellitus without complications; I10 Essential (primary) hypertension; Z88.1 Allergy status to other antibiotic agents; Z79.899 Other long term (current) drug therapy
CPT/HCPCS: 99285; 80053; 85025; 86886; 86900; 86901; 36415; 96372; J1200

== ENCOUNTER 2024-01-13 22:02 | Inpatient (IN) | payer MEDICAID ==
[~2024-01-13] VITALS: Ht 172.7 cm; Wt 85.4 kg
[2024-01-13 22:02] VITALS: BP_SYST 76; PULSE 118; RESP 30; TEMP 100.5; O2SAT 100
[~2024-01-13 22:02] MED LIST changes: +CYAN100010 GT; -CYAN100010 NG; +LEVE1000 GT; -LEVE1000 NG; +LIP40 GT; -LIP40 NG
[2024-01-13] MEDS ORDERED: PIPERACILLIN/TAZOBACTAM 3.375 GM/VIAL (ZOSYN) IV ONE (22:16)
[2024-01-13] MEDS ORDERED: DEXTROSE 50% JECT 50 ML DISP.SYRIN ONE (22:17)
[2024-01-13] MEDS: NS 1000 ML IV.SOLN IV ONE (22:25)
[2024-01-13] MEDS: PIPERACILLIN/TAZO 3.375 GM in NS 50 ML IV ONE (22:25)
[2024-01-13] MEDS: DEXTROSE 50% JECT 50 ML DISP.SYRIN IVP ONE ×2 (22:27→23:56)
[2024-01-13 22:55] LABS: BASOPHILS % (AUTO) 0.1 % (0.0-2.0); EOSINOPHILS % (AUTO) 0.3 % (0.0-4.0); HEMATOCRIT 26.9 % (36-48); HEMOGLOBIN 9.1 g/dL (12.0-16.0); LYMPHOCYTES # (AUTO) 1.6 K/uL (1.0-5.5); LYMPHOCYTES % (AUTO) 10.5 % (20.5-51.5); MEAN CORPUSCULAR HEMOGLOBIN 34 pg (27-31); MEAN CORPUSCULAR HGB CONC 34 % (32-36); MEAN CORPUSCULAR VOLUME 101 fL (79.0-98.0); MONOCYTES # (AUTO) 1.2 K/uL (0.0-1.0); MONOCYTES % (AUTO) 7.7 % (1.7-9.3); NEUTROPHILS # (AUTO) 12.7 K/uL (1.8-7.7); NEUTROPHILS % (AUTO) 81.4 % (40.0-70.0); RED BLOOD CELL COUNT(AUTO) 2.67 MIL/uL (4.2-6.2); RED CELL DISTRIBUTION WIDTH 14.2 % (9.0-15.0); WHITE BLOOD COUNT (AUTO) 15.6 K/uL (4.8-10.8)
[2024-01-13] MEDS ORDERED: POLY17PO4 GT (23:20)
[2024-01-13] MEDS ORDERED: ALBU2.5V7 INH ×2 (23:20)
[2024-01-13] MEDS ORDERED: LABE200T9 GT (23:20)
[2024-01-13] MEDS ORDERED: BISA10SU61 RC (23:20)
[2024-01-13] MEDS ORDERED: CRAN450T9 GT (23:20)
[2024-01-13] MEDS ORDERED: DOCU-144 GT (23:20)
[2024-01-13] MEDS ORDERED: PRO40 GT (23:20)
[2024-01-13] MEDS ORDERED: TYLL650 PO (23:20)
[2024-01-13] MEDS ORDERED: HYDR-3917 GT (23:20)
[2024-01-13] MEDS ORDERED: FER300L GT (23:20)
[2024-01-13] MEDS ORDERED: TRI48 GT (23:20)
[2024-01-13 23:21] LABS: ALANINE AMINOTRANSFERASE 59 U/L (12-78); ALBUMIN 2.8 g/dL (3.4-4.8); ANION GAP 11 (5-15); ASPARTATE AMINOTRANSFERASE 84 U/L (10-37); BILIRUBIN,DIRECT 0.6 mg/dL (0.0-0.3); CALCIUM 9.9 mg/dL (8.4-11.0); CARBON DIOXIDE 27 mmol/L (23-29); CHLORIDE 94 mmol/L (98-107); CREATININE 3.93 mg/dL (0.55-1.30); GFR AFRICAN AMERICAN 15 mL/min (>90); GLUCOSE 84 mg/dL (74-106); POTASSIUM 3.8 mmol/L (3.5-5.1); SODIUM SERUM 132 mmol/L (136-145); TOTAL PROTEIN, SERUM 7.6 g/dL (6.4-8.3); UREA NITROGEN, BLOOD 34 mg/dL (8-21)
[2024-01-13 23:23] LABS: GFR NON AFRICAN-AMERICAN 12 mL/min (>90)
[2024-01-13 23:28] LABS: INR 1.3 (0.8-1.2); PROTHROMBIN TIME 13.4 SECS (9.5-12.5)
[2024-01-14] VITALS (28 sets, daily range): BP systolic 82–161; PULSE 107–127; RESP 19–46; TEMP 99–100; O2SAT 32–100
[2024-01-14 00:32] LABS: PLATELET COUNT (AUTO) 55 K/uL (130-430)
[2024-01-14] MEDS: D5NS 1,000 ML IV SCH (02:36)
[2024-01-14] MEDS: LevALBUTEROL HCL 1.25 MG/0.5 ML *CONC.* VIAL.NEB (XOPENEX CONC.) INH SCH ×2 (03:29→19:56)
[2024-01-14] MEDS ORDERED: GLUCOSE (DEXTROSE) ORAL GEL -Adults PO PRN ×2 (04:45→20:15)
[2024-01-14] MEDS ORDERED: D5W 1,000 ML IV PRN ×2 (04:45→20:15)
[2024-01-14] MEDS: DEXTROSE 50% JECT 50 ML DISP.SYRIN ONE (04:47)
[2024-01-14] MEDS: DEXTROSE 50% JECT 50 ML DISP.SYRIN IVP PRN (05:45)
[2024-01-14] MEDS ORDERED: PIPERACILLIN/TAZOBACTAM 2.25 GM in D5W 50 ML IV SCH (06:00)
[2024-01-14 06:53] LABS: CALCIUM 8.8 mg/dL (8.4-11.0); CREATININE 4.47 mg/dL (0.55-1.30); POTASSIUM 3.6 mmol/L (3.5-5.1)
[2024-01-14] MEDS ORDERED: NOREPINEPHRINE BITARTRATE 4 MG in D5W 246 ML IV PRN (07:15)
[2024-01-14 07:38] LABS: BASOPHILS % (AUTO) 0.1 % (0.0-2.0); EOSINOPHILS # (AUTO) 0.3 K/uL (0.0-0.4); HEMATOCRIT 23.3 % (36-48); HEMOGLOBIN 7.8 g/dL (12.0-16.0); LYMPHOCYTES # (AUTO) 1.5 K/uL (1.0-5.5); LYMPHOCYTES % (AUTO) 9.2 % (20.5-51.5); MEAN CORPUSCULAR HEMOGLOBIN 35 pg (27-31); MEAN CORPUSCULAR HGB CONC 33 % (32-36); MEAN CORPUSCULAR VOLUME 103 fL (79.0-98.0); MONOCYTES # (AUTO) 0.3 K/uL (0.0-1.0); MONOCYTES % (AUTO) 2.2 % (1.7-9.3); NEUTROPHILS # (AUTO) 13.9 K/uL (1.8-7.7); NEUTROPHILS % (AUTO) 86.5 % (40.0-70.0); RED BLOOD CELL COUNT(AUTO) 2.26 MIL/uL (4.2-6.2)
[2024-01-14] MEDS: PIPERACILLIN/TAZOBACTAM 2.25 GM in D5W 50 ML IV SCH (07:56)
[2024-01-14] MEDS ORDERED: ALBUTEROL SULFATE 0.083% 2.5 MG/3 ML VIAL.NEB INH PRN ×2 (08:30→08:57)
[2024-01-14] MEDS ORDERED: NALOXONE HCL 0.4 MG/ML AMP (NARCAN) IVP PRN (08:30)
[2024-01-14 08:37] LABS: BLOOD GAS HCO3 20.5 mmol/L (21.0-27.0); BLOOD GAS PCO2 26.4 mmHg (35.0-45.0); BLOOD GAS PH 7.508 (7.350-7.450)
[2024-01-14] MEDS: BISACODYL 10 MG/SUPPOSITORY RC SCH (09:00)
[2024-01-14] MEDS: CYANOCOBALAMIN (VITAMIN B-12) 1,000 MCG TABLET GT SCH (09:00)
[2024-01-14] MEDS: FENOFIBRATE NANOCRYSTALLIZED 48 MG TABLET (TRICOR) GT SCH (09:00)
[2024-01-14] MEDS ORDERED: CRANBERRY FRUIT GT SCH (09:00)
[2024-01-14] MEDS: ALBUMIN HUMAN 25% 50 ML IV ONE ×3 (09:01→11:09)
[2024-01-14 09:02] LABS: PLATELET COUNT (AUTO) 40 K/uL (130-430)
[2024-01-14] MEDS: DOCUSATE SODIUM 100 MG CAPSULE PO SCH (09:37)
[2024-01-14] MEDS: PANTOPRAZOLE SODIUM 40 MG TAB PO SCH (09:37)
[2024-01-14] MEDS: DIVALPROEX SODIUM 125 MG CAP.(DEPAKOTE SPRINKLE) NG SCH (09:37)
[2024-01-14] MEDS: POLYETHYLENE GLYCOL 3350, 17 GM/ POWD.PACK GT SCH (09:38)
[2024-01-14] MEDS: FERROUS SULFATE 300 MG/5 ML UDC GT SCH (09:38)
[2024-01-14] MEDS: levETIRAcetam 500 MG TABLET GT SCH (09:40)
[2024-01-14] MEDS: HYDROCORTISONE SOD SUCC 100 MG/2 ML VIAL IVP ONE (09:43)
[2024-01-14 13:01] LABS: BILIRUBIN,URINE 2+ (NEGATIVE); BLOOD, URINE 3+ (NEGATIVE); CLARITY/URINE CLOUDY (CLEAR); COLOR,URINE BROWN (YELLOW); GLUCOSE,URINE TRACE (NEGATIVE); KETONES,URINE TRACE (NEGATIVE); LEUKOCYTE ESTERASE ,URINE 2+ (NEGATIVE); NITRITE, URINE POSITIVE (NEGATIVE); PH,URINE 6.5 (5.0-8.0); PROTEIN URINE 3+ (NEGATIVE)
[2024-01-14 13:53] LABS: ALBUMIN 2.7 g/dL (3.4-4.8); CALCIUM 8.9 mg/dL (8.4-11.0); CREATININE 4.6 mg/dL (0.55-1.30); POTASSIUM 3.8 mmol/L (3.5-5.1); TOTAL BILIRUBIN 1.4 mg/dL (0.0-1.0); TOTAL PROTEIN, SERUM 6.3 g/dL (6.4-8.3)
[2024-01-14 14:08] LABS: RBC,URINE 20-50 /HPF (0-3); WBC,URINE 20-50 /HPF (0-3)
[2024-01-14 14:10] LABS: BACTERIA,URINE MANY /HPF (None Seen); CALCIUM OXALATE CRYSTALS,UR 0-10 /HPF (None Seen)
[2024-01-14] MEDS: HEPARIN SODIUM,PORCINE 5,000 UNITS/ML VIAL SUBCUT SCH (15:41)
[2024-01-14] MEDS: HYDROCORTISONE SOD SUCC 100 MG/2 ML VIAL IVP SCH (15:42)
[2024-01-14] MEDS: SODIUM BICARBONATE 8.4% JECT 50 MEQ/50 ML SYRINGE IVP ONE (16:20)
[2024-01-14] MEDS ORDERED: ONDANSETRON HCL 4 MG/2 ML VIAL IVP PRN (19:15)
[2024-01-14 19:51] LABS: HEMATOCRIT 23.4 % (36-48); HEMOGLOBIN 7.9 g/dL (12.0-16.0); MEAN CORPUSCULAR HEMOGLOBIN 34 pg (27-31); MEAN CORPUSCULAR HGB CONC 34 % (32-36); MEAN CORPUSCULAR VOLUME 100 fL (79.0-98.0); PLATELET COUNT (AUTO) 109 K/uL (130-430); RED BLOOD CELL COUNT(AUTO) 2.33 MIL/uL (4.2-6.2); RED CELL DISTRIBUTION WIDTH 14.5 % (9.0-15.0)
[2024-01-14] MEDS ORDERED: DEXTROSE 50% JECT 50 ML DISP.SYRIN IVP PRN (20:15)
[2024-01-14 20:43] LABS: WHITE BLOOD COUNT (AUTO) 21.4 K/uL (4.8-10.8)
[2024-01-14 20:45] LABS: BAND % (MANUAL) 21 % (0-6); BASOPHILS % (MANUAL) 0 % (0-2); EOSINOPHILS % (MANUAL) 0 % (0-7); LYMPHOCYTES % (MANUAL) 8 % (20-46); MONOCYTES % (MANUAL) 3 % (0-11); PLATELET ESTIMATE DECREASED (ADEQUATE)
[2024-01-14 20:46] LABS: METAMYELOCYTES % 1 % (0-0)
[2024-01-14] MEDS: ATORVASTATIN 20 MG TABLET GT SCH (21:00)
[2024-01-14] MEDS: levETIRAcetam 750 MG in NS 100 ML IV SCH (22:01)
[2024-01-15] VITALS (37 sets, daily range): BP systolic 110–147; PULSE 85–108; RESP 14–26; TEMP 98.9–99.2; O2SAT 100
[2024-01-15] MEDS: INSULIN REGULAR, HUMAN 100 UNITS/ML, 3 ML VIAL (humuLIN R) SUBCUT PRN (00:55)
[2024-01-15 06:45] LABS: TOTAL IRON BIND. CAPACITY 198 ug/dL (250-450)
[2024-01-15 07:19] LABS: ALBUMIN 2.4 g/dL (3.4-4.8); CALCIUM 8.7 mg/dL (8.4-11.0); CREATININE 4.7 mg/dL (0.55-1.30); POTASSIUM 3.2 mmol/L (3.5-5.1); TOTAL BILIRUBIN 1.2 mg/dL (0.0-1.0); TOTAL PROTEIN, SERUM 6.6 g/dL (6.4-8.3)
[2024-01-15 07:25] LABS: BASOPHILS % (AUTO) 0.1 % (0.0-2.0); EOSINOPHILS # (AUTO) 0.1 K/uL (0.0-0.4); EOSINOPHILS % (AUTO) 0.3 % (0.0-4.0); HEMATOCRIT 22.7 % (36-48); HEMOGLOBIN 7.6 g/dL (12.0-16.0); MEAN CORPUSCULAR HEMOGLOBIN 34 pg (27-31); MEAN CORPUSCULAR HGB CONC 34 % (32-36); MEAN CORPUSCULAR VOLUME 101 fL (79.0-98.0); MONOCYTES # (AUTO) 0.7 K/uL (0.0-1.0); MONOCYTES % (AUTO) 4.1 % (1.7-9.3); NEUTROPHILS # (AUTO) 15.1 K/uL (1.8-7.7); PLATELET COUNT (AUTO) 105 K/uL (130-430); RED BLOOD CELL COUNT(AUTO) 2.25 MIL/uL (4.2-6.2); RED CELL DISTRIBUTION WIDTH 14.1 % (9.0-15.0); WHITE BLOOD COUNT (AUTO) 16.8 K/uL (4.8-10.8)
[2024-01-15 07:27] LABS: NEUTROPHILS % (AUTO) 89.5 % (40.0-70.0)
[2024-01-15] MEDS: PANTOPRAZOLE SODIUM 40 MG/VIAL (PROTONIX) IV SCH (09:33)
[2024-01-15] MEDS: FUROSEMIDE 40 MG/4 ML VIAL IVP ONE (12:24)
[2024-01-15] MEDS: MAGNESIUM SULFATE 50 ML IV ONE (12:24)
[2024-01-15] MEDS: POTASSIUM CHLORIDE 40 MEQ in NS 250 ML IV ONE (15:37)
[2024-01-15] MEDS: ALBUTEROL SULFATE 0.083% 2.5 MG/3 ML VIAL.NEB INH PRN (19:41)
[2024-01-15] MEDS: MUPIROCIN 2% TOPICAL OINTMENT 22 GM NS SCH (21:17)
[2024-01-16] VITALS (35 sets, daily range): BP systolic 118–189; PULSE 75–102; RESP 14–29; TEMP 97.8–99.2; O2SAT 100
[2024-01-16 06:52] LABS: ALBUMIN 2.1 g/dL (3.4-4.8); CALCIUM 8.8 mg/dL (8.4-11.0); CREATININE 4.18 mg/dL (0.55-1.30); POTASSIUM 3.1 mmol/L (3.5-5.1); TOTAL BILIRUBIN 0.9 mg/dL (0.0-1.0); TOTAL PROTEIN, SERUM 6.5 g/dL (6.4-8.3)
[2024-01-16 07:12] LABS: BASOPHILS % (AUTO) 0.2 % (0.0-2.0); EOSINOPHILS # (AUTO) 0.1 K/uL (0.0-0.4); EOSINOPHILS % (AUTO) 0.7 % (0.0-4.0); LYMPHOCYTES # (AUTO) 1.1 K/uL (1.0-5.5); LYMPHOCYTES % (AUTO) 6.2 % (20.5-51.5); MEAN CORPUSCULAR HEMOGLOBIN 34 pg (27-31); MEAN CORPUSCULAR HGB CONC 34 % (32-36); MEAN CORPUSCULAR VOLUME 99 fL (79.0-98.0); MONOCYTES # (AUTO) 0.7 K/uL (0.0-1.0); MONOCYTES % (AUTO) 3.6 % (1.7-9.3); NEUTROPHILS # (AUTO) 16.2 K/uL (1.8-7.7); PLATELET COUNT (AUTO) 74 K/uL (130-430); RED BLOOD CELL COUNT(AUTO) 2.06 MIL/uL (4.2-6.2); RED CELL DISTRIBUTION WIDTH 14.5 % (9.0-15.0); WHITE BLOOD COUNT (AUTO) 18.2 K/uL (4.8-10.8)
[2024-01-16 07:37] LABS: HEMATOCRIT 20.4 % (36-48); HEMOGLOBIN 6.9 g/dL (12.0-16.0); NEUTROPHILS % (AUTO) 89.3 % (40.0-70.0)
[2024-01-16] MEDS: KCL 20 mEq in 100 mL (PREMIX) 100 ML IV SCH (10:22)
[2024-01-16] MEDS: EPOETIN ALFA-EPBX 4,000 UNITS/ML VIAL SUBCUT SCH (17:26)
[2024-01-16] MEDS: hydrALAZINE HCL 20 MG/ML VIAL IVP PRN (18:36)
[2024-01-16] MEDS: PANTOPRAZOLE SODIUM 40 MG/VIAL (PROTONIX) IV SCH (21:04)
[2024-01-16] MEDS: amLODIPine BESYLATE 10 MG TABLET PO ONE (21:07)
[2024-01-16] MEDS: cloNIDine HCL 0.1 MG/24 HR PATCH.TDWK TD ONE (21:08)
[2024-01-16] MEDS: ACETAMINOPHEN 650 MG/20.3 ML UDC PO SCH (22:44)
[2024-01-17] VITALS (35 sets, daily range): BP systolic 141–169; PULSE 78–104; RESP 13–24; TEMP 98.6–101.2; O2SAT 100
[2024-01-17 05:11] LABS: BASOPHILS % (AUTO) 0.3 % (0.0-2.0); EOSINOPHILS # (AUTO) 0.1 K/uL (0.0-0.4); EOSINOPHILS % (AUTO) 0.6 % (0.0-4.0); HEMATOCRIT 28.2 % (36-48); HEMOGLOBIN 9.4 g/dL (12.0-16.0); LYMPHOCYTES # (AUTO) 1.6 K/uL (1.0-5.5); LYMPHOCYTES % (AUTO) 10.7 % (20.5-51.5); MEAN CORPUSCULAR HEMOGLOBIN 32 pg (27-31); MEAN CORPUSCULAR HGB CONC 33 % (32-36); MEAN CORPUSCULAR VOLUME 96 fL (79.0-98.0); MONOCYTES # (AUTO) 0.8 K/uL (0.0-1.0); MONOCYTES % (AUTO) 5.7 % (1.7-9.3); NEUTROPHILS # (AUTO) 12.2 K/uL (1.8-7.7); NEUTROPHILS % (AUTO) 82.7 % (40.0-70.0); PLATELET COUNT (AUTO) 66 K/uL (130-430); RED BLOOD CELL COUNT(AUTO) 2.94 MIL/uL (4.2-6.2); WHITE BLOOD COUNT (AUTO) 14.7 K/uL (4.8-10.8)
[2024-01-17 05:16] LABS: CALCIUM 8.7 mg/dL (8.4-11.0); CREATININE 3.22 mg/dL (0.55-1.30); POTASSIUM 3.2 mmol/L (3.5-5.1); TOTAL BILIRUBIN 1.4 mg/dL (0.0-1.0); TOTAL PROTEIN, SERUM 6.5 g/dL (6.4-8.3)
[2024-01-17] MEDS: amLODIPine BESYLATE 10 MG TABLET PO ONE (09:18)
[2024-01-17] MEDS: POTASSIUM CHLORIDE 40 MEQ in D5W 250 ML IV ONE (10:54)
[2024-01-17] MEDS: D5W 1,000 ML IV SCH (10:55)
[2024-01-17] MEDS: methylPREDNISolone SOD SUCC/PF 62.5 MG/ML VIAL IVP SCH (14:20)
[2024-01-17] MEDS: ACETAMINOPHEN 325 MG TABLET GT PRN (19:56)
[2024-01-17] MEDS: ACETAMINOPHEN 325 MG TABLET ONE (19:57)
[2024-01-18] VITALS (30 sets, daily range): BP systolic 132–166; PULSE 59–98; RESP 14–22; TEMP 96–100.1; O2SAT 98–100
[2024-01-18 04:41] LABS: BASOPHILS % (AUTO) 0.2 % (0.0-2.0); EOSINOPHILS # (AUTO) 0.2 K/uL (0.0-0.4); EOSINOPHILS % (AUTO) 1.2 % (0.0-4.0); HEMATOCRIT 27.5 % (36-48); HEMOGLOBIN 9.2 g/dL (12.0-16.0); LYMPHOCYTES # (AUTO) 1.5 K/uL (1.0-5.5); LYMPHOCYTES % (AUTO) 11.5 % (20.5-51.5); MEAN CORPUSCULAR HEMOGLOBIN 33 pg (27-31); MEAN CORPUSCULAR HGB CONC 33 % (32-36); MEAN CORPUSCULAR VOLUME 98 fL (79.0-98.0); MONOCYTES # (AUTO) 0.8 K/uL (0.0-1.0); MONOCYTES % (AUTO) 5.7 % (1.7-9.3); NEUTROPHILS % (AUTO) 81.4 % (40.0-70.0); PLATELET COUNT (AUTO) 107 K/uL (130-430); RED CELL DISTRIBUTION WIDTH 16.9 % (9.0-15.0); WHITE BLOOD COUNT (AUTO) 13.5 K/uL (4.8-10.8)
[2024-01-18 05:14] LABS: ALBUMIN 1.9 g/dL (3.4-4.8); CALCIUM 8.2 mg/dL (8.4-11.0); CREATININE 2.47 mg/dL (0.55-1.30); TOTAL BILIRUBIN 0.9 mg/dL (0.0-1.0); TOTAL PROTEIN, SERUM 6.1 g/dL (6.4-8.3)
[2024-01-18] MEDS: POTASSIUM CHLORIDE 40 MEQ in D5W 250 ML IV ONE (10:28)
[2024-01-18] MEDS: ALBUMIN HUMAN 25% 50 ML IV SCH (16:30)
[2024-01-19] VITALS (17 sets, daily range): BP systolic 133–178; PULSE 59–82; RESP 16–20; TEMP 96.8–99; O2SAT 93–99
[2024-01-19 07:00] LABS: HEMATOCRIT 31.1 % (36-48); HEMOGLOBIN 10.2 g/dL (12.0-16.0); MEAN CORPUSCULAR HEMOGLOBIN 32 pg (27-31); MEAN CORPUSCULAR HGB CONC 33 % (32-36); MEAN CORPUSCULAR VOLUME 98 fL (79.0-98.0); PLATELET COUNT (AUTO) 136 K/uL (130-430); RED BLOOD CELL COUNT(AUTO) 3.18 MIL/uL (4.2-6.2); RED CELL DISTRIBUTION WIDTH 16.4 % (9.0-15.0); WHITE BLOOD COUNT (AUTO) 21.8 K/uL (4.8-10.8)
[2024-01-19 07:15] LABS: ALBUMIN 2.9 g/dL (3.4-4.8); CALCIUM 9.2 mg/dL (8.4-11.0); CREATININE 2.12 mg/dL (0.55-1.30); POTASSIUM 3.4 mmol/L (3.5-5.1); TOTAL BILIRUBIN 0.9 mg/dL (0.0-1.0); TOTAL PROTEIN, SERUM 6.9 g/dL (6.4-8.3)
[2024-01-19 10:34] LABS: ANISOCYTOSIS 1+; ATYPICAL LYMPHOCYTES % 1 % (0-0); BAND % (MANUAL) 5 % (0-6); BASOPHILS % (MANUAL) 0 % (0-2); EOSINOPHILS % (MANUAL) 0 % (0-7); LYMPHOCYTES % (MANUAL) 9 % (20-46); METAMYELOCYTES % 1 % (0-0); MONOCYTES % (MANUAL) 4 % (0-11); PLATELET ESTIMATE ADEQUATE (ADEQUATE)
[2024-01-19] MEDS: POTASSIUM CHLORIDE 40 MEQ in D5W 250 ML IV ONE (13:02)
[2024-01-19] MEDS: CIPROFLOXACIN LACT 400 MG/D5W 200 ML IV ONE (18:41)
[2024-01-19] MEDS: methylPREDNISolone SOD SUCC/PF 62.5 MG/ML VIAL IVP SCH (22:24)
[2024-01-20] VITALS (19 sets, daily range): BP systolic 136–150; PULSE 61–98; RESP 14–16; TEMP 97.5–98.9; O2SAT 96–100
[2024-01-20 07:10] LABS: BASOPHILS % (AUTO) 0.1 % (0.0-2.0); HEMATOCRIT 29.3 % (36-48); HEMOGLOBIN 9.6 g/dL (12.0-16.0); LYMPHOCYTES # (AUTO) 0.9 K/uL (1.0-5.5); LYMPHOCYTES % (AUTO) 3.3 % (20.5-51.5); MEAN CORPUSCULAR HEMOGLOBIN 32 pg (27-31); MEAN CORPUSCULAR HGB CONC 33 % (32-36); MEAN CORPUSCULAR VOLUME 99 fL (79.0-98.0); MONOCYTES # (AUTO) 0.9 K/uL (0.0-1.0); MONOCYTES % (AUTO) 3.3 % (1.7-9.3); NEUTROPHILS # (AUTO) 24.4 K/uL (1.8-7.7); PLATELET COUNT (AUTO) 129 K/uL (130-430); RED BLOOD CELL COUNT(AUTO) 2.98 MIL/uL (4.2-6.2); RED CELL DISTRIBUTION WIDTH 16.2 % (9.0-15.0); WHITE BLOOD COUNT (AUTO) 26.1 K/uL (4.8-10.8)
[2024-01-20 07:51] LABS: ALBUMIN 2.3 g/dL (3.4-4.8); CALCIUM 8.7 mg/dL (8.4-11.0); CREATININE 1.95 mg/dL (0.55-1.30); POTASSIUM 3.5 mmol/L (3.5-5.1); TOTAL BILIRUBIN 0.5 mg/dL (0.0-1.0)
[2024-01-20 08:09] LABS: NEUTROPHILS % (AUTO) 93.3 % (40.0-70.0)
[2024-01-20] MEDS ORDERED: CIPROFLOXACIN LACT 400 MG/D5W 200 ML IV SCH (09:00)
[2024-01-20] MEDS: CIPROFLOXACIN LACT 400 MG/D5W 200 ML IV SCH (09:35)
[2024-01-21] VITALS (19 sets, daily range): BP systolic 159–180; PULSE 57–113; RESP 16–25; TEMP 97.1–97.4; O2SAT 94–100
[2024-01-21 06:28] LABS: BASOPHILS # (AUTO) 0.1 K/uL (0.0-0.2); BASOPHILS % (AUTO) 0.2 % (0.0-2.0); HEMOGLOBIN 9.2 g/dL (12.0-16.0); LYMPHOCYTES % (AUTO) 3.5 % (20.5-51.5); MEAN CORPUSCULAR HEMOGLOBIN 32 pg (27-31); MEAN CORPUSCULAR HGB CONC 33 % (32-36); MEAN CORPUSCULAR VOLUME 99 fL (79.0-98.0); MONOCYTES # (AUTO) 0.9 K/uL (0.0-1.0); MONOCYTES % (AUTO) 3.1 % (1.7-9.3); NEUTROPHILS # (AUTO) 26.9 K/uL (1.8-7.7); PLATELET COUNT (AUTO) 139 K/uL (130-430); RED BLOOD CELL COUNT(AUTO) 2.84 MIL/uL (4.2-6.2); RED CELL DISTRIBUTION WIDTH 16.1 % (9.0-15.0); WHITE BLOOD COUNT (AUTO) 28.9 K/uL (4.8-10.8)
[2024-01-21 07:05] LABS: CALCIUM 8.4 mg/dL (8.4-11.0); CREATININE 1.81 mg/dL (0.55-1.30); POTASSIUM 3.5 mmol/L (3.5-5.1)
[2024-01-21 07:45] LABS: NEUTROPHILS % (AUTO) 93.2 % (40.0-70.0)
[2024-01-22] VITALS (17 sets, daily range): BP systolic 138–162; PULSE 56–93; RESP 14–19; TEMP 93.9–99; O2SAT 95–100
[2024-01-22 09:38] LABS: INR 1.2 (0.8-1.2); PROTHROMBIN TIME 12.3 SECS (9.5-12.5)
[2024-01-22] MEDS ORDERED: ALBUTEROL SULFATE 0.083% 2.5 MG/3 ML VIAL.NEB INH PRN (10:40)
[2024-01-22] MEDS: DESMOPRESSIN ACETATE 4 MCG/ML AMP IVP SCH (10:55)
[2024-01-22] MEDS: HYDROcodone/ACETAMIN 5-325 MG TAB (NORCO/ VICODIN) GT PRN (16:55)
[2024-01-22] MEDS: methylPREDNISolone SOD SUCC/PF 62.5 MG/ML VIAL IVP SCH (21:53)
[2024-01-23] VITALS (20 sets, daily range): BP systolic 117–158; PULSE 50–99; RESP 12–16; TEMP 97.2–98.2; O2SAT 88–100
[2024-01-23 06:57] LABS: BASOPHILS % (AUTO) 0.2 % (0.0-2.0); HEMOGLOBIN 8.8 g/dL (12.0-16.0); LYMPHOCYTES % (AUTO) 12.6 % (20.5-51.5); MEAN CORPUSCULAR HEMOGLOBIN 32 pg (27-31); MEAN CORPUSCULAR HGB CONC 33 % (32-36); MEAN CORPUSCULAR VOLUME 99 fL (79.0-98.0); MONOCYTES # (AUTO) 0.4 K/uL (0.0-1.0); MONOCYTES % (AUTO) 2.7 % (1.7-9.3); NEUTROPHILS # (AUTO) 13.7 K/uL (1.8-7.7); NEUTROPHILS % (AUTO) 84.5 % (40.0-70.0); PLATELET COUNT (AUTO) 134 K/uL (130-430); RED BLOOD CELL COUNT(AUTO) 2.73 MIL/uL (4.2-6.2); RED CELL DISTRIBUTION WIDTH 15.9 % (9.0-15.0); WHITE BLOOD COUNT (AUTO) 16.2 K/uL (4.8-10.8)
[2024-01-23 07:03] LABS: ALBUMIN 2.3 g/dL (3.4-4.8); CALCIUM 8.2 mg/dL (8.4-11.0); CREATININE 1.28 mg/dL (0.55-1.30); POTASSIUM 3.3 mmol/L (3.5-5.1); TOTAL BILIRUBIN 0.4 mg/dL (0.0-1.0); TOTAL PROTEIN, SERUM 5.9 g/dL (6.4-8.3)
[2024-01-23] MEDS: cloNIDine HCL 0.1 MG/24 HR PATCH.TDWK TD SCH (09:00)
[2024-01-23] MEDS ORDERED: POTASSIUM CHLORIDE 20 MEQ/PKT PACKET GT ONE (11:45)
[2024-01-23] MEDS: POTASSIUM CHLORIDE 40 MEQ, LIDOCAINE JECT 2% PF 100 MG 75 MG in NS 250 ML IV ONE (13:14)
[2024-01-24] VITALS (16 sets, daily range): BP systolic 136–166; PULSE 49–80; RESP 18–19; TEMP 96.9–98.9; O2SAT 99–100
[2024-01-24 06:50] LABS: BASOPHILS % (AUTO) 0.2 % (0.0-2.0); HEMATOCRIT 26.8 % (36-48); HEMOGLOBIN 8.6 g/dL (12.0-16.0); LYMPHOCYTES # (AUTO) 1.5 K/uL (1.0-5.5); LYMPHOCYTES % (AUTO) 11.4 % (20.5-51.5); MEAN CORPUSCULAR HEMOGLOBIN 32 pg (27-31); MEAN CORPUSCULAR HGB CONC 32 % (32-36); MEAN CORPUSCULAR VOLUME 100 fL (79.0-98.0); MONOCYTES # (AUTO) 0.4 K/uL (0.0-1.0); MONOCYTES % (AUTO) 2.9 % (1.7-9.3); NEUTROPHILS # (AUTO) 11.2 K/uL (1.8-7.7); NEUTROPHILS % (AUTO) 85.5 % (40.0-70.0); PLATELET COUNT (AUTO) 142 K/uL (130-430); RED BLOOD CELL COUNT(AUTO) 2.68 MIL/uL (4.2-6.2); RED CELL DISTRIBUTION WIDTH 15.2 % (9.0-15.0); WHITE BLOOD COUNT (AUTO) 13.1 K/uL (4.8-10.8)
[2024-01-24 07:56] LABS: CALCIUM 7.9 mg/dL (8.4-11.0); CREATININE 1.1 mg/dL (0.55-1.30); POTASSIUM 3.6 mmol/L (3.5-5.1)
[2024-01-24] MEDS: METHYLPREDNISOLONE SOD SUCC 40 MG/ML VIAL IVP SCH (20:34)
[2024-01-25] VITALS (22 sets, daily range): BP systolic 140–175; PULSE 50–99; RESP 16–20; TEMP 96.4–98.7; O2SAT 99–100
[2024-01-26] VITALS (20 sets, daily range): BP systolic 142–175; PULSE 51–90; RESP 15–24; TEMP 97–99.3; O2SAT 97–100
[2024-01-26 06:45] LABS: BASOPHILS % (AUTO) 0.2 % (0.0-2.0); HEMATOCRIT 25.9 % (36-48); HEMOGLOBIN 8.6 g/dL (12.0-16.0); LYMPHOCYTES # (AUTO) 1.9 K/uL (1.0-5.5); LYMPHOCYTES % (AUTO) 12.6 % (20.5-51.5); MEAN CORPUSCULAR HEMOGLOBIN 33 pg (27-31); MEAN CORPUSCULAR HGB CONC 33 % (32-36); MEAN CORPUSCULAR VOLUME 99 fL (79.0-98.0); MONOCYTES # (AUTO) 0.6 K/uL (0.0-1.0); MONOCYTES % (AUTO) 3.7 % (1.7-9.3); NEUTROPHILS # (AUTO) 12.4 K/uL (1.8-7.7); NEUTROPHILS % (AUTO) 83.5 % (40.0-70.0); RED BLOOD CELL COUNT(AUTO) 2.61 MIL/uL (4.2-6.2); RED CELL DISTRIBUTION WIDTH 14.8 % (9.0-15.0); WHITE BLOOD COUNT (AUTO) 14.9 K/uL (4.8-10.8)
[2024-01-26 07:52] LABS: CALCIUM 7.9 mg/dL (8.4-11.0); CREATININE 0.9 mg/dL (0.55-1.30); POTASSIUM 3.3 mmol/L (3.5-5.1)
[2024-01-26] MEDS: POTASSIUM CHLORIDE 20 MEQ/PKT PACKET PO ONE (11:44)
[2024-01-26 11:49] LABS: PLATELET COUNT (AUTO) 174 K/uL (130-430)
[2024-01-26] MEDS: cloNIDine HCL 0.3 MG/24 HR PATCH.TDWK TD ONE (13:00)
[2024-01-26] MEDS: cloNIDine HCL 0.1 MG/24 HR PATCH.TDWK TD ONE (16:51)
[2024-01-27] VITALS (17 sets, daily range): BP systolic 143–159; PULSE 55–113; RESP 14–18; TEMP 97.6–99.1; O2SAT 98–100
[2024-01-27 04:32] LABS: BILIRUBIN,URINE NEGATIVE (NEGATIVE); BLOOD, URINE 2+ (NEGATIVE); CLARITY/URINE CLEAR (CLEAR); COLOR,URINE YELLOW (YELLOW); GLUCOSE,URINE NEGATIVE (NEGATIVE); KETONES,URINE NEGATIVE (NEGATIVE); LEUKOCYTE ESTERASE ,URINE 1+ (NEGATIVE); NITRITE, URINE NEGATIVE (NEGATIVE); PH,URINE 6.5 (5.0-8.0); PROTEIN URINE TRACE (NEGATIVE); UROBILINOGEN,URINE 0.2 (0.2-1.0)
[2024-01-27 05:46] LABS: BACTERIA,URINE None Seen /HPF (None Seen)
[2024-01-27] MEDS: DEXTROSE 50% JECT 50 ML DISP.SYRIN IVP PRN (06:39)
[2024-01-27 07:08] LABS: CALCIUM 7.5 mg/dL (8.4-11.0); CREATININE 0.95 mg/dL (0.55-1.30)
[2024-01-27 07:12] LABS: INR 1.2 (0.8-1.2); PROTHROMBIN TIME 12.2 SECS (9.5-12.5)
[2024-01-27 07:24] LABS: POTASSIUM 2.9 mmol/L (3.5-5.1)
[2024-01-27] MEDS ORDERED: POTASSIUM CHLORIDE 20 MEQ/PKT PACKET PO ONE (07:45)
[2024-01-27] MEDS ORDERED: POTASSIUM CHLORIDE 20 MEQ/PKT PACKET GT ONE (08:00)
[2024-01-27 08:23] LABS: BASOPHILS % (AUTO) 0.1 % (0.0-2.0); EOSINOPHILS # (AUTO) 0.1 K/uL (0.0-0.4); EOSINOPHILS % (AUTO) 0.8 % (0.0-4.0); HEMATOCRIT 24.3 % (36-48); HEMOGLOBIN 7.9 g/dL (12.0-16.0); LYMPHOCYTES # (AUTO) 3.4 K/uL (1.0-5.5); MEAN CORPUSCULAR HEMOGLOBIN 33 pg (27-31); MEAN CORPUSCULAR HGB CONC 33 % (32-36); MEAN CORPUSCULAR VOLUME 102 fL (79.0-98.0); MONOCYTES # (AUTO) 0.5 K/uL (0.0-1.0); NEUTROPHILS % (AUTO) 69.1 % (40.0-70.0); RED BLOOD CELL COUNT(AUTO) 2.39 MIL/uL (4.2-6.2); RED CELL DISTRIBUTION WIDTH 15.5 % (9.0-15.0)
[2024-01-27] MEDS: METHYLPREDNISOLONE SOD SUCC 40 MG/ML VIAL IVP SCH (08:23)
[2024-01-27] MEDS: fentaNYL CITRATE/PF 100 MCG/2 ML AMP ONE (08:57)
[2024-01-27] MEDS ORDERED: WATER FOR IRRIGATION,STERILE 1,000 ML IRRIG.SOLN IR ONE (09:01)
[2024-01-27] MEDS ORDERED: SEVOFLURANE 15 MIN GAS INH ONE (09:01)
[2024-01-27] MEDS ORDERED: NS IRRIG SOLN 1000 ML IR ONE (09:01)
[2024-01-27] MEDS ORDERED: NS 1000 ML IV.SOLN IV ONE (09:01)
[2024-01-27] MEDS ORDERED: ROCURONIUM BROMIDE 10 MG/ML (ZEMURON) ONE (09:01)
[2024-01-27] MEDS: KCL 40 mEq in 100 mL (PREMIX) 100 ML IV ONE (09:03)
[2024-01-27] MEDS: POTASSIUM CHLORIDE 20 MEQ/PKT PACKET GT ONE ×2 (12:00→14:52)
[2024-01-27] MEDS: LABETALOL HCL 20 MG/4 ML CARTRIDGE IVP ONE ×2 (12:12→12:20)
[2024-01-27 14:42] LABS: PLATELET COUNT (AUTO) 65 K/uL (130-430)
[2024-01-28] VITALS (18 sets, daily range): BP systolic 118–149; PULSE 55–89; RESP 14–18; TEMP 97–98.4; O2SAT 99–100
[2024-01-28 07:45] LABS: CALCIUM 7.6 mg/dL (8.4-11.0); CREATININE 0.92 mg/dL (0.55-1.30); POTASSIUM 3.2 mmol/L (3.5-5.1)
[2024-01-28 08:09] LABS: BASOPHILS % (AUTO) 0.2 % (0.0-2.0); HEMATOCRIT 24.4 % (36-48); MEAN CORPUSCULAR HEMOGLOBIN 33 pg (27-31)
[2024-01-28 08:12] LABS: EOSINOPHILS # (AUTO) 0.2 K/uL (0.0-0.4); EOSINOPHILS % (AUTO) 1.5 % (0.0-4.0); HEMOGLOBIN 7.9 g/dL (12.0-16.0); LYMPHOCYTES # (AUTO) 3.1 K/uL (1.0-5.5); MEAN CORPUSCULAR HGB CONC 32 % (32-36); MEAN CORPUSCULAR VOLUME 102 fL (79.0-98.0); MONOCYTES # (AUTO) 0.4 K/uL (0.0-1.0); MONOCYTES % (AUTO) 2.7 % (1.7-9.3); NEUTROPHILS # (AUTO) 12.5 K/uL (1.8-7.7); NEUTROPHILS % (AUTO) 76.6 % (40.0-70.0); RED CELL DISTRIBUTION WIDTH 16.4 % (9.0-15.0)
[2024-01-28 08:49] LABS: WHITE BLOOD COUNT (AUTO) 16.3 K/uL (4.8-10.8)
[2024-01-28 12:24] LABS: PLATELET COUNT (AUTO) 75 K/uL (130-430)
[2024-01-28] MEDS ORDERED: MAGNESIUM SULFATE 1 GM/2 ML VIAL IVP ONE (20:00)
[2024-01-28] MEDS: POTASSIUM CHLORIDE 20 MEQ/PKT PACKET PO ONE (20:39)
[2024-01-28] MEDS: METHYLPREDNISOLONE SOD SUCC 40 MG/ML VIAL IVP SCH (20:41)
[2024-01-29] VITALS (19 sets, daily range): BP systolic 112–168; PULSE 61–103; RESP 16–22; TEMP 96.4–98.4; O2SAT 96–100
[2024-01-29] MEDS: MAGNESIUM SULFATE 50 ML IV ONE (01:05)
[2024-01-29 07:41] LABS: CALCIUM 8.7 mg/dL (8.4-11.0); CREATININE 0.97 mg/dL (0.55-1.30); POTASSIUM 4.3 mmol/L (3.5-5.1)
[2024-01-29 11:01] LABS: BASOPHILS % (AUTO) 0.3 % (0.0-2.0); EOSINOPHILS % (AUTO) 0.1 % (0.0-4.0); HEMATOCRIT 32.7 % (36-48); LYMPHOCYTES # (AUTO) 1.8 K/uL (1.0-5.5); LYMPHOCYTES % (AUTO) 13.6 % (20.5-51.5); MEAN CORPUSCULAR HEMOGLOBIN 33 pg (27-31); MEAN CORPUSCULAR HGB CONC 31 % (32-36); MEAN CORPUSCULAR VOLUME 107 fL (79.0-98.0); MONOCYTES # (AUTO) 0.9 K/uL (0.0-1.0); MONOCYTES % (AUTO) 6.8 % (1.7-9.3); NEUTROPHILS # (AUTO) 10.6 K/uL (1.8-7.7); NEUTROPHILS % (AUTO) 79.2 % (40.0-70.0); PLATELET COUNT (AUTO) 198 K/uL (130-430); RED BLOOD CELL COUNT(AUTO) 3.07 MIL/uL (4.2-6.2); RED CELL DISTRIBUTION WIDTH 17.7 % (9.0-15.0); WHITE BLOOD COUNT (AUTO) 13.4 K/uL (4.8-10.8)
[2024-01-29] MEDS: MAGNESIUM OXIDE 400 MG TABLET GT SCH (11:18)
[2024-01-30] VITALS (17 sets, daily range): BP systolic 138–147; PULSE 55–88; RESP 14–20; TEMP 97–98.3; O2SAT 96–100
[2024-01-31] VITALS (18 sets, daily range): BP systolic 134–147; PULSE 53–73; RESP 16–19; TEMP 97–97.6; O2SAT 94–100
[2024-01-31 08:21] LABS: BASOPHILS % (AUTO) 0.2 % (0.0-2.0); HEMATOCRIT 29.3 % (36-48); HEMOGLOBIN 9.5 g/dL (12.0-16.0); LYMPHOCYTES # (AUTO) 0.8 K/uL (1.0-5.5); LYMPHOCYTES % (AUTO) 8.9 % (20.5-51.5); MEAN CORPUSCULAR HEMOGLOBIN 33 pg (27-31); MEAN CORPUSCULAR HGB CONC 32 % (32-36); MEAN CORPUSCULAR VOLUME 103 fL (79.0-98.0); MONOCYTES # (AUTO) 0.4 K/uL (0.0-1.0); MONOCYTES % (AUTO) 4.6 % (1.7-9.3); NEUTROPHILS # (AUTO) 8.1 K/uL (1.8-7.7); NEUTROPHILS % (AUTO) 86.3 % (40.0-70.0); PLATELET COUNT (AUTO) 133 K/uL (130-430); RED BLOOD CELL COUNT(AUTO) 2.86 MIL/uL (4.2-6.2); RED CELL DISTRIBUTION WIDTH 17.2 % (9.0-15.0); WHITE BLOOD COUNT (AUTO) 9.4 K/uL (4.8-10.8)
[2024-01-31 08:22] LABS: ALBUMIN 2.6 g/dL (3.4-4.8); CREATININE 1.13 mg/dL (0.55-1.30); TOTAL BILIRUBIN 0.3 mg/dL (0.0-1.0); TOTAL PROTEIN, SERUM 6.4 g/dL (6.4-8.3)
[2024-02-01] VITALS (20 sets, daily range): BP systolic 112–154; PULSE 18–96; RESP 14–20; TEMP 97.1–97.9; O2SAT 98–100
[2024-02-01] MEDS: CIPROFLOXACIN HCL 500 MG TABLET NG STA (11:51)
[2024-02-02] VITALS (18 sets, daily range): BP systolic 134–147; PULSE 42–100; RESP 16–18; TEMP 97.3–98; O2SAT 96–100
[2024-02-02 07:23] LABS: BASOPHILS % (AUTO) 0.1 % (0.0-2.0); HEMATOCRIT 27.8 % (36-48); LYMPHOCYTES % (AUTO) 13.8 % (20.5-51.5); MEAN CORPUSCULAR HEMOGLOBIN 33 pg (27-31); MEAN CORPUSCULAR HGB CONC 32 % (32-36); MEAN CORPUSCULAR VOLUME 101 fL (79.0-98.0); MONOCYTES # (AUTO) 0.3 K/uL (0.0-1.0); MONOCYTES % (AUTO) 3.9 % (1.7-9.3); NEUTROPHILS # (AUTO) 6.1 K/uL (1.8-7.7); NEUTROPHILS % (AUTO) 82.2 % (40.0-70.0); RED BLOOD CELL COUNT(AUTO) 2.75 MIL/uL (4.2-6.2); RED CELL DISTRIBUTION WIDTH 16.2 % (9.0-15.0); WHITE BLOOD COUNT (AUTO) 7.5 K/uL (4.8-10.8)
[2024-02-02 07:41] LABS: ALBUMIN 2.5 g/dL (3.4-4.8); CALCIUM 8.9 mg/dL (8.4-11.0); CREATININE 1.02 mg/dL (0.55-1.30); TOTAL BILIRUBIN 0.3 mg/dL (0.0-1.0); TOTAL PROTEIN, SERUM 6.1 g/dL (6.4-8.3)
[2024-02-02 08:06] LABS: PLATELET COUNT (AUTO) 133 K/uL (130-430)
[2024-02-02] MEDS ORDERED: cloNIDine HCL 0.3 MG/24 HR PATCH.TDWK TD SCH (09:00)
[2024-02-02] MEDS: cloNIDine HCL 0.1 MG/24 HR PATCH.TDWK TD SCH (09:30)
[2024-02-02] MEDS ORDERED: THEOPHYLLINE ANHYDROUS 200 MG CAP.ER.24H PO ONE (12:30)
[2024-02-02] MEDS: ATROPINE SULFATE 1 MG/10 ML SYRINGE IVP ONE (13:03)
[2024-02-02] MEDS: THEOPHYLLINE ANHYDROUS 80 MG/15 ML UDC GT ONE (13:44)
[2024-02-02] MEDS: THEOPHYLLINE ANHYDROUS 80 MG/15 ML UDC GT SCH (20:26)
[2024-02-02] MEDS ORDERED: THEOPHYLLINE ANHYDROUS 200 MG TAB.SR.12H PO SCH (21:00)
[2024-02-03] VITALS (18 sets, daily range): BP systolic 138–180; PULSE 44–77; RESP 14–20; TEMP 97.3–99.2; O2SAT 98–100
[2024-02-04] VITALS (19 sets, daily range): BP systolic 118–159; PULSE 60–101; RESP 14–20; TEMP 97.3–98.5; O2SAT 96–99
[2024-02-04 08:32] LABS: CALCIUM 8.7 mg/dL (8.4-11.0); CREATININE 1.02 mg/dL (0.55-1.30); POTASSIUM 3.5 mmol/L (3.5-5.1)
[2024-02-04 08:40] LABS: HEMATOCRIT 29.9 % (36-48); HEMOGLOBIN 9.7 g/dL (12.0-16.0); MEAN CORPUSCULAR HEMOGLOBIN 33 pg (27-31); MEAN CORPUSCULAR HGB CONC 33 % (32-36); MEAN CORPUSCULAR VOLUME 101 fL (79.0-98.0); RED BLOOD CELL COUNT(AUTO) 2.95 MIL/uL (4.2-6.2); RED CELL DISTRIBUTION WIDTH 17.4 % (9.0-15.0); WHITE BLOOD COUNT (AUTO) 8.3 K/uL (4.8-10.8)
[2024-02-04 08:57] LABS: PLATELET COUNT (AUTO) 130 K/uL (130-430)
[2024-02-04 09:50] LABS: BASOPHILS % (MANUAL) 0 % (0-2); EOSINOPHILS % (MANUAL) 0 % (0-7); LYMPHOCYTES % (MANUAL) 14 % (20-46); MONOCYTES % (MANUAL) 3 % (0-11)
[2024-02-04 09:51] LABS: ANISOCYTOSIS 1+; PLATELET ESTIMATE ADEQUATE (ADEQUATE); POLYCHROMASIA 1+; TARGET CELLS RARE
[2024-02-04 09:52] LABS: TEAR DROP CELLS FEW
[2024-02-05] VITALS (16 sets, daily range): BP systolic 138–177; PULSE 75–114; RESP 14–20; TEMP 97.2–98.5; O2SAT 96–100
[2024-02-05] MEDS: LORazepam 2 MG/ML VIAL IVP PRN (00:58)
[2024-02-05 08:05] LABS: LYMPHOCYTES # (AUTO) 0.6 K/uL (1.0-5.5); LYMPHOCYTES % (AUTO) 6.7 % (20.5-51.5); MEAN CORPUSCULAR HEMOGLOBIN 33 pg (27-31); MEAN CORPUSCULAR HGB CONC 32 % (32-36); MEAN CORPUSCULAR VOLUME 103 fL (79.0-98.0); MONOCYTES # (AUTO) 0.3 K/uL (0.0-1.0); MONOCYTES % (AUTO) 3.1 % (1.7-9.3); NEUTROPHILS # (AUTO) 7.5 K/uL (1.8-7.7); RED BLOOD CELL COUNT(AUTO) 3.02 MIL/uL (4.2-6.2); RED CELL DISTRIBUTION WIDTH 17.7 % (9.0-15.0); WHITE BLOOD COUNT (AUTO) 8.3 K/uL (4.8-10.8)
[2024-02-05 08:22] LABS: NEUTROPHILS % (AUTO) 90.2 % (40.0-70.0)
[2024-02-05 08:23] LABS: PLATELET COUNT (AUTO) 102 K/uL (130-430)
[2024-02-05 08:47] LABS: CALCIUM 8.8 mg/dL (8.4-11.0); CREATININE 1.01 mg/dL (0.55-1.30); POTASSIUM 3.4 mmol/L (3.5-5.1)
[2024-02-05] MEDS: POTASSIUM CHLORIDE 20 MEQ/PKT PACKET GT ONE (15:19)
[2024-02-06] VITALS (13 sets, daily range): BP systolic 117–143; PULSE 52–76; RESP 16–18; TEMP 97–98.1; O2SAT 93–100
[2024-02-06] MEDS ORDERED: GLYCOPYRROLATE 0.2 MG/ML VIAL ONE (08:00)
[2024-02-06] MEDS ORDERED: ONDANSETRON HCL 4 MG/2 ML VIAL ONE (08:00)
[2024-02-06] MEDS ORDERED: NEOSTIGMINE METHYLSULFATE 1 MG/ML, 10 ML VIAL ONE (08:00)
[2024-02-06] MEDS ORDERED: WATER FOR IRRIGATION,STERILE 1,000 ML IRRIG.SOLN IR ONE (08:00)
[2024-02-06] MEDS ORDERED: METOCLOPRAMIDE HCL 10 MG/2 ML VIAL ONE (08:00)
[2024-02-06] MEDS ORDERED: cefTRIAXone 1 GM VIAL ONE (08:00)
[2024-02-06] MEDS ORDERED: ROCURONIUM BROMIDE 10 MG/ML (ZEMURON) ONE (08:00)
[2024-02-06] MEDS ORDERED: NS 1000 ML IV.SOLN IV ONE (08:00)
[2024-02-06] MEDS ORDERED: SEVOFLURANE 15 MIN GAS INH ONE (08:00)
[2024-02-07] VITALS (11 sets, daily range): BP systolic 134–152; PULSE 53–95; RESP 16–18; TEMP 97–98.1; O2SAT 93–100
[2024-02-07 08:16] LABS: BASOPHILS % (AUTO) 0.2 % (0.0-2.0); HEMATOCRIT 28.9 % (36-48); HEMOGLOBIN 9.3 g/dL (12.0-16.0); LYMPHOCYTES # (AUTO) 0.5 K/uL (1.0-5.5); LYMPHOCYTES % (AUTO) 6.4 % (20.5-51.5); MEAN CORPUSCULAR HEMOGLOBIN 33 pg (27-31); MEAN CORPUSCULAR HGB CONC 32 % (32-36); MEAN CORPUSCULAR VOLUME 103 fL (79.0-98.0); MONOCYTES # (AUTO) 0.2 K/uL (0.0-1.0); MONOCYTES % (AUTO) 2.4 % (1.7-9.3); NEUTROPHILS # (AUTO) 7.1 K/uL (1.8-7.7); WHITE BLOOD COUNT (AUTO) 7.8 K/uL (4.8-10.8)
[2024-02-07 08:33] LABS: PLATELET COUNT (AUTO) 83 K/uL (130-430)
[2024-02-07 08:42] LABS: ALBUMIN 2.3 g/dL (3.4-4.8); CALCIUM 8.1 mg/dL (8.4-11.0); CREATININE 1.01 mg/dL (0.55-1.30); POTASSIUM 3.2 mmol/L (3.5-5.1); TOTAL BILIRUBIN 0.3 mg/dL (0.0-1.0); TOTAL PROTEIN, SERUM 5.6 g/dL (6.4-8.3)
[2024-02-07] MEDS: POTASSIUM CHLORIDE 20 MEQ/PKT PACKET PO ONE (11:45)
[2024-02-07] MEDS: METHYLPREDNISOLONE SOD SUCC 40 MG/ML VIAL IVP SCH (21:32)
[2024-02-08] VITALS (9 sets, daily range): BP systolic 144–165; PULSE 55–66; RESP 16–18; TEMP 97–97.7; O2SAT 95–100
[2024-02-08 08:30] LABS: ALBUMIN 2.6 g/dL (3.4-4.8); CALCIUM 8.6 mg/dL (8.4-11.0); CREATININE 1.03 mg/dL (0.55-1.30); POTASSIUM 3.7 mmol/L (3.5-5.1); TOTAL BILIRUBIN 0.3 mg/dL (0.0-1.0); TOTAL PROTEIN, SERUM 6.2 g/dL (6.4-8.3)
[2024-02-08 08:36] LABS: BASOPHILS % (AUTO) 0.1 % (0.0-2.0); HEMATOCRIT 31.7 % (36-48); HEMOGLOBIN 10.4 g/dL (12.0-16.0); LYMPHOCYTES % (AUTO) 11.1 % (20.5-51.5); MEAN CORPUSCULAR HEMOGLOBIN 33 pg (27-31); MEAN CORPUSCULAR HGB CONC 33 % (32-36); MEAN CORPUSCULAR VOLUME 102 fL (79.0-98.0); MONOCYTES # (AUTO) 0.4 K/uL (0.0-1.0); MONOCYTES % (AUTO) 4.8 % (1.7-9.3); NEUTROPHILS # (AUTO) 7.3 K/uL (1.8-7.7); RED BLOOD CELL COUNT(AUTO) 3.11 MIL/uL (4.2-6.2); RED CELL DISTRIBUTION WIDTH 18.2 % (9.0-15.0); WHITE BLOOD COUNT (AUTO) 8.7 K/uL (4.8-10.8)
[2024-02-08 09:13] LABS: PLATELET COUNT (AUTO) 79 K/uL (130-430)
[2024-02-08] MEDS: PANTOPRAZOLE SODIUM 40 MG TAB PO SCH (10:19)
== END 2024-02-08 15:14 | DRG 710 ==
LOC: SED 22:02 → SIC 01-14 00:41 → SMU 01-18 17:55 → STU 01-18 19:09
PROVIDERS: ADMIT Family Medicine; ATTEND Family Medicine
PROC: 5A1955Z Respiratory Ventilation, Greater than 96 Consecutive Hours (ICD-10-PCS; principal; 2024-01-14)
PROC: 02HV33Z Insertion of Infusion Device into Superior Vena Cava, Percutaneous Approach (ICD-10-PCS; 2024-01-14)
PROC: 0TC68ZZ Extirpation of Matter from Right Ureter, Via Natural or Artificial Opening Endoscopic (ICD-10-PCS; 2024-01-27)
PROC: 0T768DZ Dilation of Right Ureter with Intraluminal Device, Via Natural or Artificial Opening Endoscopic (ICD-10-PCS; 2024-01-27)
PROC: 30233N1 Transfusion of Nonautologous Red Blood Cells into Peripheral Vein, Percutaneous Approach (ICD-10-PCS; 2024-02-05)
PROC: 0TJ98ZZ Inspection of Ureter, Via Natural or Artificial Opening Endoscopic (ICD-10-PCS; 2024-02-06)
PROC: 0TJB8ZZ Inspection of Bladder, Via Natural or Artificial Opening Endoscopic (ICD-10-PCS; 2024-02-06)
DX: A41.50 Gram-negative sepsis, unspecified (principal); R65.21 Severe sepsis with septic shock; J18.9 Pneumonia, unspecified organism; G93.49 Other encephalopathy; N17.9 Acute kidney failure, unspecified; D69.6 Thrombocytopenia, unspecified; E87.4 Mixed disorder of acid-base balance; K56.7 Ileus, unspecified; J96.10 Chronic respiratory failure, unspecified whether with hypoxia or hypercapnia; K92.2 Gastrointestinal hemorrhage, unspecified; Z20.822 Contact with and (suspected) exposure to COVID-19; E86.0 Dehydration; D64.9 Anemia, unspecified; G40.909 Epilepsy, unspecified, not intractable, without status epilepticus; I10 Essential (primary) hypertension; Z79.899 Other long term (current) drug therapy; Z86.73 Personal history of transient ischemic attack (TIA), and cerebral infarction without residual deficits; Z93.0 Tracheostomy status; Z88.8 Allergy status to other drugs, medicaments and biological substances; N13.6 Pyonephrosis; R73.9 Hyperglycemia, unspecified; N39.0 Urinary tract infection, site not specified
CPT/HCPCS: 36415; 36600; 71045; 74018; 76000; 76700; 76770; 80048; 80053; 80076; 80164; 81000; 81001; 81015; 82150; 82272; 82542; 82803; 82948; 83037; 83540; 83550; 83605; 83690; 83735; 84443; 84484; 85007; 85025; 85027; 85610; 85730; 86886; 86900; 86901; 86920; 87040; 87070; 87081; 87086; 87186; 87205; 93005; 94002; 94003; 94070; 94640; 94760; 96365; 99291; C1769; C2617; G0378; J0360; J0461; J0696; J0744; J1030; J1644; J1720; J1815; J1940; J1953; J2060; J2405; J2470; J2543; J2597; J2710; J2765; J2930; J3010; J3475; J3480; J3490; J7030; J7050; J7060; J7612; P9021; P9046; Q5106